=== PATIENT | male | born 1945 | race Caucasian/White ===

== ENCOUNTER → 2016-11-02 | Outpatient (CLI) | payer MEDICARE, BC ==
--- NOTE | 2016-11-02 12:54 | CR ---
EXAMINATION: Cervical spine HISTORY: Pain COMPARISON: None TECHNIQUE: AP and lateral views FINDINGS: The cervical spinal alignment is normal. The vertebral body heights and disc spaces appear well-maintained. There is no fracture or dislocation. No mineralization is normal. Prevertebral sof t tissues are within normal limits. IMPRESSION: Grossly unremarkable cervical spine.
== END | disposition home or self-care (01) ==
LOC: MW.CHFP 08:38
PROVIDERS: ATTEND Family Medicine
DX: M54.2 Cervicalgia (principal); R42 Dizziness and giddiness; F17.210 Nicotine dependence, cigarettes, uncomplicated
CPT/HCPCS: 72040; G0463

== ENCOUNTER 2017-04-07 10:47 | Emergency (ER) | payer MEDICARE, BC ==
--- NOTE | 2017-04-07 11:17 | EDM.PDOC ---
ED HPI GENERAL MEDICAL PROBLEM - General Chief Complaint: Flank Pain Stated Complaint: LEFT SIDE PAIN Time Seen by Provider: 04/07/17 10:59 Source of Information: Reports: Patient History Limitations: Reports: No Limitations - History of Present Illness INITIAL COMMENTS - FREE TEXT/NARRATIVE: HISTORY AND PHYSICAL: History of present illness: [71-year-old male with a history of coronary artery disease as well as atrial fibrillation on a elequis now presents to the emergency department waning of left flank pain. Patient has pain in his left mid back. The pain is worse with movement. He denies spinal pain. Reports normal bowel and bladder habits. No hematuria. He has no prior history of kidney stones. 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 This procedure also included removal of a rib in the distribution of his incision which is in the area of his left mid and anterior axillary line beneath the left axilla. Patient denies exertional symptoms. He has no chest pain or shortness of breath. No nausea vomiting diaphoresis no fevers chills sweats or shaking chills. Other than this pain reproducible with movement in his left mid back patient is asymptomatic Review of systems: As per history of present illness and below otherwise all systems reviewed and negative. Past medical history: As per history of present illness and as reviewed below otherwise noncontributory. Surgical history: As per history of present illness and as reviewed below otherwise noncontributory. Social history: No reported history of drug or alcohol abuse. Family history: As per history of present illness and as reviewed below otherwise noncontributory. Physical exam: HEENT: Atraumatic, normocephalic, pupils reactive, negative for conjunctival pallor or scleral icterus, mucous membranes moist, throat clear, neck supple, nontender, trachea midline. Lungs: Clear to auscultation, breath sounds equal bilaterally, chest nontender. Heart: S1S2, regular, negative for clicks, rubs, or JVD. Abdomen: Soft, nondistended, nontender. Negative for masses or hepatosplenomegaly. Negative for costovertebral tenderness. Pelvis: Stable nontender. Genitourinary: Deferred. Rectal: Deferred. Extremities: Atraumatic, negative for cords or calf pain. Neurovascular unremarkable. Neuro: Awake, alert, oriented. Cranial nerves II through XII unremarkable. Cerebellum unremarkable. Motor and sensory unremarkable throughout. Exam nonfocal. Diagnostics: [EKG with atrial fibrillation with ventricular rate at 75. Left anterior hemiblock. Left axis deviation. No STEMI] Therapeutics: [] Impression: [Left back pain Dorsal strain] Diverticulosis Adrenal masses Plan: [Signs and symptoms consistent with suspected musculoskeletal etiology for left mid back pain. Patient does have a complex history of coronary artery disease, atrial fibrillation with anticoagulation and prior lung surgery but no history of ureterolithiasis.] Full workup pending. Patient clinically stable Patient well-appearing on multiple reexamines with unremarkable vital signs. His laboratory workup is negative. X-ray of the chest with no acute disease. EKG benign and consistent with his history of atrial fibrillation. CT of the abdomen and pelvis reflect multiple chronic changes including adrenal masses suspected to be adenomas and diverticulosis with no evidence of diverticulitis. Full workup negative. The default diagnosis of suspected musculoskeletal back pain and dorsal strain appropriate. Results discussed with patient no further workup or treatment is indicated at this time he and his agree with outpatient follow-up and strict return precautions given Definitive disposition and diagnosis as appropriate pending reevaluation and review of above. left flank Pain Score (Numeric/FACES): 4 - Related Data Allergies Allergy/AdvReac Type Severity Reaction Status Date / Time atorvastatin calcium Allergy Muscle Verified 04/07/17 11:00 [From Lipitor] Aches cyclobenzaprine HCl Allergy Hallucinati Verified 04/07/17 11:00 [From Flexeril] ons Penicillins Allergy Itching Verified 04/07/17 11:00 Home Meds: Home Meds Apixaban [Eliquis] 2.5 mg PO BID 08/06/16 [History] Aspirin 81 mg PO DAILY 08/06/16 [History] Carvedilol [Coreg] 25 mg PO BID 08/06/16 [History] Doxazosin [Cardura] 4 mg PO BEDTIME 08/06/16 [History] atorvaSTATin [Lipitor] 10 mg PO DAILY 08/06/16 [History] Hydrocodone/Acetaminophen [[place] 5-325 Tablet] 1 each PO Q4H PRN #16 tablet [Rx] Past Medical History Other HEENT History: Tonsillectomy and Adenoidectomy as a child Cardiovascular History: Reports: High Cholesterol, Hypertension, Other (See Below) Other Cardiovascular History: Angioplasty 03/01/15 Emergency Transluminal Coronary Angioplasty, no stent placed Respiratory History: Reports: Asthma, COPD Other Respiratory History: Influenza A last september 2014 Genitourinary History: Other Genitourinary History: Prostate enlarement Musculoskeletal History: Other Musculoskeletal History: Lumbar post laminectomy syndrome Other Neuro History: Intervertebral disc disorder with myelopathy-lumbar region Endocrine/Metabolic History: Reports: Obesity/BMI 30+ Hematologic History: Reports: Anemia - Infectious Disease History Infectious Disease History: Reports: Measles, Mumps - Past Surgical History Cardiovascular Surgical History: Reports: Coronary Artery Stent Respiratory Surgical History: Reports: Other (See Below) Social & Family History - Family History Family Medical History: Noncontributory - Tobacco Use Smoking Status *Q: Current Every Day Smoker Years of Tobacco use: 50 Packs/Tins Daily: 0.5 Second Hand Smoke Exposure: No - Alcohol Use Days Per Week of Alcohol Use: 2 Number of Drinks Per Day: 2 Total Drinks Per Week: 4 - Recreational Drug Use Recreational Drug Use: No Drug Use in Last 12 Months: No ED ROS GENERAL - Review of Systems Review Of Systems: See Below (History of present illness) ED EXAM, GENERAL - Physical Exam Exam: See Below (History of present illness) Course - Vital Signs Last Recorded V/S: Last Vital Signs Temp 36.3 C 04/07/17 10:48 Pulse 68 04/07/17 12:51 Resp 18 04/07/17 12:51 BP 148/89 H 04/07/17 12:51 Pulse Ox 98 04/07/17 12:51 - Orders/Labs/Meds Orders: Active Orders 24 hr Category Date Time Status EKG Documentation Completion [RC] STAT Care 04/07/17 11:26 Active Abdomen Pelvis w Cont [CT] Stat Exams 04/07/17 11:20 Taken Chest 2V [CR] Stat Exams 04/07/17 11:24 Taken Peripheral IV Insertion Adult [OM.PC] Stat Oth 04/07/17 11:20 Ordered Labs: Laboratory Tests 04/07/17 04/07/17 04/07/17 Range/Units 11:30 11:35 11:35 WBC 9.00 (4.0-11.0) K/uL RBC 4.67 (4.50-5.90) M/uL Hgb 15.0 (13.0-17.0) g/dL Hct 45.3 (38.0-50.0) % MCV 97.0 (80.0-98.0) fL MCH 32.1 H (27.0-32.0) pg MCHC 33.1 (31.0-37.0) g/dL RDW Std Deviation 53.1 (28.0-62.0) fl RDW Coeff of [place] 15 (11.0-15.0) % Plt Count 219 (150-400) K/uL MPV 11.30 (7.40-12.00) fL Neut % (Auto) 64.0 (48.0-80.0) % Lymph % (Auto) 20.8 (16.0-40.0) % [place] % (Auto) 12.0 (0.0-15.0) % Eos % (Auto) 2.8 (0.0-7.0) % Baso % (Auto) 0.4 (0.0-1.5) % Neut # (Auto) 5.8 H (1.4-5.7) K/uL Lymph # (Auto) 1.9 (0.6-2.4) K/uL [place] # (Auto) 1.1 H (0.0-0.8) K/uL Eos # (Auto) 0.3 (0.0-0.7) K/uL Baso # (Auto) 0.0 (0.0-0.1) K/uL Nucleated RBC % 0.0 /100WBC Nucleated RBCs # 0 K/uL Sodium 140 (136-146) mmol/L Potassium 4.5 (3.5-5.1) mmol/L Chloride 107 (98-110) mmol/L Carbon Dioxide 25 (21-31) mmol/L BUN 16 (6.0-23.0) mg/dL Creatinine 1.1 (0.6-1.5) mg/dL Est Cr Clr Drug Dosing 67.61 mL/min Estimated GFR (MDRD) > 60.0 ml/min Glucose 112 H (60-110) mg/dL Calcium 8.9 (8.8-10.8) mg/dL Total Bilirubin 1.5 (0.1-1.5) mg/dL AST 20 (5-40) IU/L ALT 16 (8-54) IU/L Alkaline Phosphatase 79 (40-150) Troponin I (0.0-0.29) NG/ML Total Protein 7.3 (6.0-8.0) g/dL Albumin 4.2 (3.4-4.8) g/dL Globulin 3.1 (2.0-3.5) g/dL Albumin/Globulin Ratio 1.4 (1.3-2.8) Lipase 24 (7-80) U/L Urine Color YELLOW Urine Appearance CLEAR Urine pH 6.5 (5.0-8.0) Ur Specific Benedict 1.020 (1.001-1.035) Urine Protein 30 (NEGATIVE) mg/dL Urine Glucose (UA) NEGATIVE (NEGATIVE) mg/dL Urine Ketones NEGATIVE (NEGATIVE) mg/dL Urine Occult Blood TRACE-INTACT (NEGATIVE) Urine Nitrite NEGATIVE (NEGATIVE) Urine Bilirubin NEGATIVE (NEGATIVE) Urine Urobilinogen 1.0 (<2.0) EU/dL Ur Leukocyte Esterase NEGATIVE (NEGATIVE) Urine RBC 4-6 (0-2/HPF) Urine WBC 0-2 (0-5/HPF) Ur Epithelial Cells FEW (NONE-FEW) Urine Bacteria FEW (NEGATIVE) 04/07/17 Range/Units 11:35 WBC (4.0-11.0) K/uL RBC (4.50-5.90) M/uL Hgb (13.0-17.0) g/dL Hct (38.0-50.0) % MCV (80.0-98.0) fL MCH (27.0-32.0) pg MCHC (31.0-37.0) g/dL RDW Std Deviation (28.0-62.0) fl RDW Coeff of [place] (11.0-15.0) % Plt Count (150-400) K/uL MPV (7.40-12.00) fL Neut % (Auto) (48.0-80.0) % Lymph % (Auto) (16.0-40.0) % [place] % (Auto) (0.0-15.0) % Eos % (Auto) (0.0-7.0) % Baso % (Auto) (0.0-1.5) % Neut # (Auto) (1.4-5.7) K/uL Lymph # (Auto) (0.6-2.4) K/uL [place] # (Auto) (0.0-0.8) K/uL Eos # (Auto) (0.0-0.7) K/uL Baso # (Auto) (0.0-0.1) K/uL Nucleated RBC % /100WBC Nucleated RBCs # K/uL Sodium (136-146) mmol/L Potassium (3.5-5.1) mmol/L Chloride (98-110) mmol/L Carbon Dioxide (21-31) mmol/L BUN (6.0-23.0) mg/dL Creatinine (0.6-1.5) mg/dL Est Cr Clr Drug Dosing mL/min Estimated GFR (MDRD) ml/min Glucose (60-110) mg/dL Calcium (8.8-10.8) mg/dL Total Bilirubin (0.1-1.5) mg/dL AST (5-40) IU/L ALT (8-54) IU/L Alkaline Phosphatase (40-150) Troponin I < 0.10 (0.0-0.29) NG/ML Total Protein (6.0-8.0) g/dL Albumin (3.4-4.8) g/dL Globulin (2.0-3.5) g/dL Albumin/Globulin Ratio (1.3-2.8) Lipase (7-80) U/L Urine Color Urine Appearance Urine pH (5.0-8.0) Ur Specific [place] (1.001-1.035) Urine Protein (NEGATIVE) mg/dL Urine Glucose (UA) (NEGATIVE) mg/dL Urine Ketones (NEGATIVE) mg/dL Urine Occult Blood (NEGATIVE) Urine Nitrite (NEGATIVE) Urine Bilirubin (NEGATIVE) Urine Urobilinogen (<2.0) EU/dL Ur Leukocyte Esterase (NEGATIVE) Urine RBC (0-2/HPF) Urine WBC (0-5/HPF) Ur Epithelial Cells (NONE-FEW) Urine Bacteria (NEGATIVE) Meds: Medications Discontinued Medications Generic Name Dose Route Start Last Admin Trade Name Freq PRN Reason Stop Dose Admin Iopamidol 100 ml 04/07/17 12:41 04/07/17 12:42 Isovue Multipack-370 (76%) IVPUSH 04/07/17 12:42 100 ml ONETIME STA Administration Departure - Departure Time of Disposition: 13:56 Disposition: Home, Self-Care 01 Condition: Good Clinical Impression: Back pain, Strain, dorsal, Diverticulosis, Mass of both adrenal glands, Hypertension - Discharge Information Forms: ED Department Discharge Additional Instructions: Your findings are consistent with dorsal strain which means a strain of the back muscles which cause soreness with movement and touch. A very full workup was done in order to determine that there was nothing else contributing to your discomfort. Your CAT scan does show some chronic incidental findings including bilateral adrenal masses which are benign-appearing and are likely adrenal adenomas. It also shows diverticulosis but no evidence of diverticulitis. Her blood pressure was not well controlled during her visit today so follow-up with your DrBurt for reevaluation and further treatment as needed. Take [place] as prescribed as needed for pain and follow-up with your DrBurt tomorrow. Return immediately for new severe or worsening symptoms - My Orders Last 24 Hours: My Active Orders 04/07/17 11:20 Abdomen Pelvis w Cont [CT] Stat Peripheral IV Insertion Adult [OM.PC] Stat 04/07/17 11:24 Chest 2V [CR] Stat 04/07/17 11:26 EKG Documentation Completion [RC] STAT - Assessment/Plan Last 24 Hours: My Active Orders 04/07/17 11:20 Abdomen Pelvis w Cont [CT] Stat Peripheral IV Insertion Adult [OM.PC] Stat 04/07/17 11:24 Chest 2V [CR] Stat 04/07/17 11:26 EKG Documentation Completion [RC] STAT
[2017-04-07 12:04] LABS: CHLORIDE,CL 107 mmol/L (98-110); SODIUM,NA 140 mmol/L (136-146)
[2017-04-07] MEDS ORDERED: Iopamidol 755 MG/ML 500 ML Multipack Bottle IVPUSH STA (12:41)
[2017-04-07 14:50] VITALS: BP 141/92
--- NOTE | 2017-04-09 11:26 | CT ---
EXAM DATE: 04/07/17 PATIENT'S AGE: 71 Patient: NAUN HAQUE Facility: [place], [place] Site . Site : 1945 Study: CT Abdomen/Pelvis [id number]/29/2017 12:50:16 PM Ordering Physician: New Miller Final Report: INDICATION: Left Flank Pain for 5 Days TECHNIQUE: Helical scans obtained through the abdomen and pelvis after administration of 100 cc of Isovue-370 intravenously. COMPARISON: CT scan of the abdomen and pelvis dated 08/17/2016. FINDINGS: 1. Chronic scarring at the left lung base. 2. Stable calcified lesion at the left hepatic dome, segment 2. This may be related to old granulomatous infection. 3. Spleen, pancreas and gallbladder appear normal. 4. There are small bilateral adrenal nodules which are stable and most likely represent small adenomas. 5. 3 mm nonobstructing calculus in the mid left kidney. This is unchanged. No hydronephrosis or ureteral stones. 6. Diverticulosis in the sigmoid colon without diverticulitis. Normal appendix. Small bowel loops are normal caliber. 7. Moderate aortoiliac artery calcification. No aneurysm. 8. Degenerative disc disease at L3-4. Laminectomies at L3 through L5. Lumbar curvature with convexity to the left. 9. No free fluid or free air in the peritoneal cavity. 10. Bladder and prostate are within normal limits. IMPRESSION: No acute intra-abdominal abnormalities are identified. The appearance of the abdomen and pelvis are unchanged since 08/17/2016. Dictated by Maverick Cuba MD @ 04/07/2017 1:33:53 PM Dictated by: Maverick Cuba MD @ 04/07/2017 13:34:00 (Electronic Signature) Report Signed by Proxy. [facility] ROCHELLE HOSPITALDee Dee
--- NOTE | 2017-04-09 11:27 | CR ---
EXAM DATE: 04/07/17 PATIENT'S AGE: 71 Patient: NAUN HAQUE Facility: [place], [place] Site . Site : 1945 Study: XRay Chest [id number]/29/2017 12:56:32 PM Ordering Physician: New Miller Final Report: HISTORY: Left flank pain technique chest x-ray. Comparison: Chest x-ray 05/18/2015. Findings: Stable mild enlargement of the cardiac silhouette. Left basilar patchy opacities probably represent fibrotic given the stability. No acute airspace or interstitial process. Right lung is clear. Degenerative changes of the spine. Probable eventration the posterior hemidiaphragm. Impression: 1. No acute pulmonary findings. Dictated by Anali Garcia MD @ Apr 07 2017 1:27PM (Electronic Signature) Report Signed by Proxy. MTDDee Dee
== END 2017-04-07 14:40 | disposition home or self-care (01) ==
LOC: MW.ED 10:47
DX: S29.012A Strain of muscle and tendon of back wall of thorax, initial encounter (principal); K57.90 Diverticulosis of intestine, part unspecified, without perforation or abscess without bleeding; E27.9 Disorder of adrenal gland, unspecified; E78.00 Pure hypercholesterolemia, unspecified; I10 Essential (primary) hypertension; J45.909 Unspecified asthma, uncomplicated; J44.9 Chronic obstructive pulmonary disease, unspecified; E66.9 Obesity, unspecified; F17.210 Nicotine dependence, cigarettes, uncomplicated; Z88.0 Allergy status to penicillin; Z88.8 Allergy status to other drugs, medicaments and biological substances; Z86.2 Personal history of diseases of the blood and blood-forming organs and certain disorders involving the immune mechanism; Z79.82 Long term (current) use of aspirin; Z79.899 Other long term (current) drug therapy; Z68.34 Body mass index [BMI] 34.0-34.9, adult; I25.10 Atherosclerotic heart disease of native coronary artery without angina pectoris; I48.91 Unspecified atrial fibrillation; X58.XXXA Exposure to other specified factors, initial encounter
CPT/HCPCS: 71020; 74177; 80053; 81001; 83690; 84484; 85025; 99285; Q9967; 93005; 99283

== ENCOUNTER 2017-10-03 10:17 | Day surgery (SDC) | payer MEDICARE, BC ==
[~2017-10-03 10:17] MED LIST: Bupivacaine 0.25%/EPINEPHrine 1:200,000 10 ML SDV INJECT ONE; Bupivacaine 25%/EPINEPHrine/PF 30 ML ONE; Clindamycin Phosphate in D5W 600 MG in Premix Bag 1 BAG IV ONE; Dexamethasone 4 MG/ML 5 ML MDV ONE; Dexamethasone/Tobramycin 0.1-0.3% Ophth Oint 3.5 GM Tube ONE; Dexamethasone/Tobramycin 0.1-0.3% Ophth Susp 2.5 ML Bottle EYEBOTH ONE; Lactated Ringers 1,000 ML IV SCH; Midazolam 1 MG/ML 2 ML SDV ONE; Octyl 2-Cyanoacrylate 1 Tube ONE; Ondansetron 4 MG/2 ML SDV ONE; Propofol 200 MG/20 ML SDV ONE; fentaNYL 100 MCG/2 ML SDV ONE; traMADol 50 MG Tab PO PRN
--- NOTE | 2017-10-03 11:38 | PCM.PREANE ---
Preanesthetic Assessment - Anesthesia/Transfusion/Family Hx Anesthesia History: Prior Anesthesia Without Reaction Other Type of Anesthesia Reaction Comment: denies any known problem in past Family History of Anesthesia Reaction: No Transfusion History: No Prior Transfusion(s) - Review of Systems General: No Symptoms Pulmonary: No Symptoms Cardiovascular: No Symptoms Gastrointestinal: No Symptoms Neurological: No Symptoms Other: Reports: None - Physical Assessment NPO Status Date: 10/02/17 Height: 1.83 m Weight: 113.398 kg ASA Class: 2 Mental Status: Alert & Oriented x3 Airway Class: Mallampati = 2 Dentition: Reports: Normal Dentition ROM/Head Extension: Full Lungs: Clear to Auscultation, Normal Respiratory Effort Cardiovascular: Regular Rate, Regular Rhythm - Allergies Allergies/Adverse Reactions: Allergies Allergy/AdvReac Type Severity Reaction Status Date / Time atorvastatin calcium Allergy Muscle Verified 10/01/17 08:56 [From Lipitor] Aches cyclobenzaprine HCl Allergy Hallucinati Verified 10/01/17 08:56 [From Flexeril] ons Penicillins Allergy Itching Verified 10/01/17 08:56 - Acknowledgements Anesthesia Type Planned: General Anesthesia Pt an Appropriate Candidate for the Planned Anesthesia: Yes Alternatives and Risks of Anesthesia Discussed w Pt/Guardian: Yes Pt/Guardian Understands and Agrees with Anesthesia Plan: Yes Additional Comments: PMH: asthma, sylvia, cad with angioplasty but no stent, htn, hld, gerd, smoker, mild MR and mild AI, mod pulm htn PreAnesthesia Questionnaire Other HEENT History: Tonsillectomy and Adenoidectomy as a child, reading glasses Cardiovascular History: Reports: CAD, High Cholesterol, Hypertension, Other ( See Below) Other Cardiovascular History: Angioplasty 03/01/15 Emergency Transluminal Coronary Angioplasty, no stent placed Respiratory History: Reports: Asthma, COPD Other Respiratory History: Influenza A september 2014, hx pleural effusion, chest tube placement and rib resection, open flap drainage and closure of open flap drain Gastrointestinal History: Reports: GERD Genitourinary History: Reports: BPH Musculoskeletal History: Reports: Arthritis, Back Pain, Chronic, Fracture, Neck Pain, Chronic Other Musculoskeletal History: Lumbar post laminectomy syndrome, hx fx leg Other Neuro History: Intervertebral disc disorder with myelopathy-lumbar region Endocrine/Metabolic History: Reports: Obesity/BMI 30+ Hematologic History: Reports: Iron Deficiency - Infectious Disease History Infectious Disease History: Reports: Measles, Mumps - Past Surgical History Head Surgeries/Procedures: Reports: None HEENT Surgical History: Reports: Adenoidectomy, Tonsillectomy Cardiovascular Surgical History: Respiratory Surgical History: GI Surgical History: Reports: Colonoscopy Neurological Surgical History: Reports: Laminectomy Other Musculoskeletal Surgeries/Procedures:: L3-5 Laminectomy 02/26/15 - SUBSTANCE USE Smoking Status *Q: Current Every Day Smoker Tobacco Use Within Last Twelve Months: Cigarettes Second Hand Smoke Exposure: No Days Per Week of Alcohol Use: 2 Number of Drinks Per Day: 2 Total Drinks Per Week: 4 Recreational Drug Use History: No - HOME MEDS Home Medications: Home Meds Apixaban [Eliquis] 2.5 mg PO BID 08/06/16 [History] Aspirin 81 mg PO DAILY 08/06/16 [History] Carvedilol [Coreg] 25 mg PO BID 08/06/16 [History] Doxazosin [Cardura] 4 mg PO BID 08/06/16 [History] atorvaSTATin [Lipitor] 10 mg PO DAILY 08/06/16 [History] Albuterol [Ventolin HFA] 2 puff INH Q4H PRN 10/01/17 [History] Hydrochlorothiazide 12.5 mg PO DAILY 10/01/17 [History] Lidocaine 4% [LMX 4] 1 applic TOP ASDIRECTED PRN 10/01/17 [History] Lisinopril 20 mg PO BID 10/01/17 [History] Nitroglycerin [Nitrostat] 1 tab SL ASDIRECTED PRN 10/01/17 [History] Ranitidine HCl [Zantac] 1 tab PO ASDIRECTED PRN 10/01/17 [History] - CURRENT (IN HOUSE) MEDS Current Meds: Current Medications Lactated Ringer's (Ringers, Lactated) 1,000 mls @ 500 mls/hr IV .BOLUS BLAIR Last Admin: 10/03/17 10:53 Dose: 500 mls/hr Tramadol HCl (Ultram) 50 mg PO Q4H PRN PRN Reason: Pain Discontinued Medications Bupivacaine HCl/Epinephrine Bitart (Marcaine 0.25%/Epinephrine 1:200,000) 10 ml INJECT ONETIME ONE Stop: 10/03/17 08:01 Dexamethasone (Dexamethasone) Confirm Administered Dose 20 mg .ROUTE .STK-MED ONE Stop: 10/03/17 07:18 Fentanyl (Sublimaze) Confirm Administered Dose 100 mcg .ROUTE .STK-MED ONE Stop: 10/03/17 07:17 Clindamycin Phosphate 600 mg/ (Premix) 50 mls @ 150 mls/hr IV ONETIME ONE Stop: 10/03/17 08:19 Bupivacaine HCl/Epinephrine Bitart (Sensorc Mpf 0.25%-Epi [id number]) Confirm Administered Dose 30 mls @ as directed .ROUTE .STK-MED ONE Stop: 10/03/17 07:23 Lidocaine HCl (Xylocaine-Mpf 1%) Confirm Administered Dose 5 ml .ROUTE .STK-MED ONE Stop: 10/03/17 07:18 Midazolam HCl (Versed 1 Mg/Ml) Confirm Administered Dose 2 mg .ROUTE .STK-MED ONE Stop: 10/03/17 07:17 Octyl Cyanoacrylate (Dermabond Advance) Confirm Administered Dose 1 applic .ROUTE .STK-MED ONE Stop: 10/03/17 07:24 Ondansetron HCl (Zofran) Confirm Administered Dose 4 mg .ROUTE .STK-MED ONE Stop: 10/03/17 07:18 Propofol (Diprivan 20 Ml) Confirm Administered Dose 200 mg .ROUTE .STK-MED ONE Stop: 10/03/17 07:17 Tobramycin/Dexamethasone (Tobradex Ophth Susp) 1 ml EYEBOTH ONETIME ONE Stop: 10/03/17 08:01 Tobramycin/Dexamethasone (Tobradex Ophth Oint) Confirm Administered Dose 3.5 gm .ROUTE .STK-MED ONE Stop: 10/03/17 07:24
[2017-10-03] MEDS ORDERED: Phenylephrine/Normal Saline 100 MCG/ML 10 ML Syringe ONE (11:50)
[2017-10-03] MEDS ORDERED: Mineral Oil/Petrolatum Ophth Oint 3.5 GM Tube ONE (11:52)
[2017-10-03] MEDS ORDERED: Phenylephrine 1% 10 MG/ML SDV ONE (12:01)
[2017-10-03] MEDS ORDERED: Glycopyrrolate 0.2 MG/ML SDV ONE (12:09)
[2017-10-03] MEDS ORDERED: fentaNYL 100 MCG/2 ML SDV IVPUSH PRN (12:16)
--- NOTE | 2017-10-03 13:44 | PCM48HPAN ---
Post Anesthesia Note - EVALUATION WITHIN 48HRS OF ANESTHETIC Vital Signs in Normal Range: Yes Patient Participated in Evaluation: Yes Respiratory Function Stable: Yes Airway Patent: Yes Cardiovascular Function Stable: Yes Hydration Status Stable: Yes Pain Control Satisfactory: Yes Nausea and Vomiting Control Satisfactory: Yes Mental Status Recovered: Yes
--- NOTE | 2017-10-03 13:44 | PCM.POSTAN ---
POST ANESTHESIA ASSESSMENT - MENTAL STATUS Mental Status: Alert, Oriented - RESPIRATORY Respiratory Status: Respiratory Rate WNL, Airway Patent, O2 Saturation Stable - CARDIOVASCULAR CV Status: Pulse Rate WNL, Blood Pressure Stable - GASTROINTESTINAL GI Status: No Symptoms - POST OP HYDRATION Hydration Status: Adequate & Stable
[2017-10-03 14:12] VITALS: BP 115/68
--- NOTE | 2017-10-05 08:00 | PCM.OPNOTE ---
- General Post-Op/Procedure Note Date of Surgery/Procedure: 10/03/17 Operative Procedure(s): bilateral upper lid blepharoplasties for excess skin Pre Op Diagnosis: bilateral dermatochalasis Post-Op Diagnosis: Same Anesthesia Technique: Local, MAC Primary Surgeon: Aura Guevara Gas Appliance Repairer: Janey Servin Complications: None Condition: Good
--- NOTE | 2017-10-05 20:34 | OR ---
SURGEON: DONN LEE MD DATE OF PROCEDURE: 10/03/2017 PREOPERATIVE DIAGNOSIS: Bilateral dermatochalasis, upper lid. POSTOPERATIVE DIAGNOSIS: Bilateral dermatochalasis, upper lid. PROCEDURE: Bilateral upper lid blepharoplasty for excess skin. LANDSCAPE LABORER: JAREK Cowan. ANESTHESIA: Local MAC. Reason for assistant attorney general is retraction, prepping, draping, and closure assistance. INDICATIONS: Mr. Venegas is a 71-year-old gentleman seen today in evaluation for bilateral upper eyelid excess skin. Risks and benefits were discussed with him of excision and he was in agreement to proceed. Risks were including, but not limited to, bleeding, infection, damage to underlying or overlying structures, possible need for future interventions, possible scarring. DESCRIPTION OF PROCEDURE: After informed consent was obtained and placed on the chart, the patient was brought to the operating theater and laid in supine position. After adequate general anesthetic was obtained, the area was prepped and draped and a time-out was completed to confirm side and site. Attention was then paid to marking of the upper eyelid incisions. Once adequate excess skin had been marked and pinch tests were completed to ensure appropriate release, taking slightly more on the right side than on the left, attention was then paid to infiltration of local anesthesia in the area. Once adequately infiltrated, the excess skin was incised using a 15 blade and Bovie electrocautery for hemostasis. Once adequately excised, the muscle was cauterized to prevent additional bleeding and allow additional retraction and then the skin was closed with a single deep 5-0 Monocryl stitch and a running 6- 0 Prolene for the skin. These were tacked in place using Steri-Strips. The patient tolerated the procedure well with symmetry of procedure completed on each side. Once adequately completed, the patient was awakened, taken to PACU in stable condition. He will call with any questions or concerns and was given a prescription for pain control. HEGGTHE / MODL /[id number]
== END 2017-10-03 13:45 | disposition home or self-care (01) ==
LOC: MW.SDS 10:17
PROVIDERS: ATTEND Plastic Surgery
DX: H02.834 Dermatochalasis of left upper eyelid (principal); H02.831 Dermatochalasis of right upper eyelid; D50.9 Iron deficiency anemia, unspecified; I48.91 Unspecified atrial fibrillation; I25.10 Atherosclerotic heart disease of native coronary artery without angina pectoris; I10 Essential (primary) hypertension; E78.00 Pure hypercholesterolemia, unspecified; R31.1 Benign essential microscopic hematuria; N40.0 Benign prostatic hyperplasia without lower urinary tract symptoms; K21.9 Gastro-esophageal reflux disease without esophagitis; M96.1 Postlaminectomy syndrome, not elsewhere classified; F17.210 Nicotine dependence, cigarettes, uncomplicated; I25.2 Old myocardial infarction; J44.9 Chronic obstructive pulmonary disease, unspecified; E66.9 Obesity, unspecified; M19.90 Unspecified osteoarthritis, unspecified site; Z79.01 Long term (current) use of anticoagulants; Z79.899 Other long term (current) drug therapy; Z88.8 Allergy status to other drugs, medicaments and biological substances; Z88.1 Allergy status to other antibiotic agents; Z88.0 Allergy status to penicillin; Z79.82 Long term (current) use of aspirin; Z90.89 Acquired absence of other organs; Z68.33 Body mass index [BMI] 33.0-33.9, adult; Z98.61 Coronary angioplasty status
CPT/HCPCS: 15822; J1100; J2250; J2370; J2405; J3010; J7120; 00103; A9270-GY; J2704

== ENCOUNTER 2020-09-27 14:39 | Emergency (ER) | payer MEDICARE, BC ==
[2020-09-27] MEDS ORDERED: Sodium Chloride 0.9% 10 ML Syringe FLUSH PRN (14:41)
[2020-09-27] MEDS ORDERED: Sodium Chloride 0.9% 2.5 ML Syringe FLUSH PRN (14:41)
--- NOTE | 2020-09-27 14:43 | EDM.PDOC ---
ED HPI GENERAL MEDICAL PROBLEM - General Stated Complaint: STOMACH PAIN Time Seen by Provider: 09/27/20 14:40 Source of Information: Reports: Patient History Limitations: Reports: No Limitations - History of Present Illness INITIAL COMMENTS - FREE TEXT/NARRATIVE: 74-year-old male with history of A. fib, COPD, CAD, diverticulosis presents with lower abdominal pain over the past 2 weeks. Pain has been waxing and waning but increasing in intensity today. Described as cramping sensation, nonradiating, moderate, no alleviating or exacerbating factors. He denies fever, chills, nausea, vomiting, palpitations, dysuria. He admits to nonbloody diarrhea. He is on eliquis. ROS: A 10-point review of systems, other than pertinent positives and negatives as stated per HPI, is otherwise negative Past medical history: No additional pertinent history Past Surgical history: No additional pertinent history Social history: No additional pertinent history Family history: No additional pertinent history PHYSICAL EXAM General: AOx4, GCS = 15, No distress HEENT: dry mucous membrane Neck: supple, no meningismus, no Kernig or Brudzinski Cardiac: S1S2 RRR Respiratory: CTAB, no crackles or rales, no wheezing Abdomen: Soft, nontender, no rebound or guarding, nondistended, no pulsatile mass. Back: nontender Musculoskeletal: NVI distally, no deformity Neuro: No focal deficits, CN 2 - 12 WNL. right lower quadrant Pain Score (Numeric/FACES): 5 - Related Data Allergies Allergy/AdvReac Type Severity Reaction Status Date / Time cyclobenzaprine HCl Allergy Hallucinati Verified 09/27/20 15:02 [From Flexeril] ons Home Meds: Home Meds Apixaban [Eliquis] 2.5 mg PO BID 08/06/16 [History] Aspirin 81 mg PO DAILY 08/06/16 [History] Doxazosin [Cardura] 4 mg PO BID 08/06/16 [History] atorvaSTATin [Lipitor] 10 mg PO DAILY 08/06/16 [History] carvediloL [Coreg] 25 mg PO BID 08/06/16 [History] Albuterol [Ventolin HFA] 2 puff INH Q4H PRN 10/01/17 [History] Lisinopril 20 mg PO BID 10/01/17 [History] Nitroglycerin [Nitrostat] 1 tab SL ASDIRECTED PRN 10/01/17 [History] hydroCHLOROthiazide [Hydrochlorothiazide] 12.5 mg PO DAILY 10/01/17 [History] Dicyclomine [Bentyl] 10 mg PO QIDACANDBED #12 cap 09/27/20 [Rx] Past Medical History Other HEENT History: Tonsillectomy and Adenoidectomy as a child, reading glasses Cardiovascular History: Reports: CAD, High Cholesterol, Hypertension, Other (See Below) Other Cardiovascular History: Angioplasty 03/01/15 Emergency Transluminal Coronary Angioplasty, no stent placed Respiratory History: Reports: Asthma, COPD Other Respiratory History: Influenza A september 2014, hx pleural effusion, chest tube placement and rib resection, open flap drainage and closure of open flap drain Gastrointestinal History: Reports: GERD Genitourinary History: Reports: BPH Musculoskeletal History: Reports: Arthritis, Back Pain, Chronic, Fracture, Neck Pain, Chronic Other Musculoskeletal History: Lumbar post laminectomy syndrome, hx fx leg Other Neuro History: Intervertebral disc disorder with myelopathy-lumbar region Endocrine/Metabolic History: Reports: Obesity/BMI 30+ Hematologic History: Reports: Iron Deficiency - Infectious Disease History Infectious Disease History: Reports: Measles, Mumps Other Infectious Disease History: unsure - Past Surgical History Head Surgeries/Procedures: Reports: None HEENT Surgical History: Reports: Adenoidectomy, Tonsillectomy GI Surgical History: Reports: Colonoscopy Neurological Surgical History: Reports: Laminectomy Other Musculoskeletal Surgeries/Procedures:: L3-5 Laminectomy 02/26/15 Social & Family History - Family History Family Medical History: No Pertinent Family History ED ROS GENERAL - Review of Systems Review Of Systems: See Below (see dictation) ED EXAM, GI/ABD - Physical Exam Exam: See Below (see dictation) #1 Interpretation EKG Interpretation Comments: 79 bpm, afib, normal QRS interval, no STEMI. EKG and rhythm strip interpreted by me at 1456 Course - Vital Signs Last Recorded V/S: Last Vital Signs Temp 98.1 F 09/27/20 14:55 Pulse 73 09/27/20 14:55 Resp 18 09/27/20 14:55 BP 152/89 H 09/27/20 14:55 Pulse Ox 97 09/27/20 14:55 - Orders/Labs/Meds Orders: Active Orders 24 hr Category Date Time Status Cardiac Monitoring [RC] . DIRECTED Care 09/27/20 14:41 Active EKG Documentation Completion [RC] STAT Care 09/27/20 14:42 Active Pulse Oximetry [RC] ASDIRECTED Care 09/27/20 14:41 Active Sodium Chloride 0.9% [Saline Flush] Med 09/27/20 14:41 Active 10 ml FLUSH ASDIRECTED PRN Sodium Chloride 0.9% [Saline Flush] Med 09/27/20 14:41 Active 2.5 ml FLUSH ASDIRECTED PRN Saline Lock Insert [OM.PC] Stat Oth 09/27/20 14:41 Ordered Medication Orders Sodium Chloride (Saline Flush) 10 ml FLUSH ASDIRECTED PRN PRN Reason: Keep Vein Open Last Admin: 09/27/20 15:17 Dose: 10 ml Documented by: TRUDY Sodium Chloride (Saline Flush) 2.5 ml FLUSH ASDIRECTED PRN PRN Reason: Keep Vein Open Last Admin: 09/27/20 15:17 Dose: 2.5 ml Documented by: TRUDY Labs: Laboratory Tests 09/27/20 09/27/20 09/27/20 Range/Units 14:50 14:57 14:57 WBC 9.57 (4.0-11.0) K/uL RBC 4.56 (4.50-5.90) M/uL Hgb 15.0 (13.0-17.0) g/dL Hct 45.3 (38.0-50.0) % MCV 99.3 H (80.0-98.0) fL MCH 32.9 H (27.0-32.0) pg MCHC 33.1 (31.0-37.0) g/dL RDW Std Deviation 47.4 (28.0-62.0) fl RDW Coeff of [place] 13 (11.0-15.0) % Plt Count 217 (150-400) K/uL MPV 11.70 (7.40-12.00) fL Neut % (Auto) 55.9 (48.0-80.0) % Lymph % (Auto) 30.4 (16.0-40.0) % [place] % (Auto) 10.6 (0.0-15.0) % Eos % (Auto) 2.5 (0.0-7.0) % Baso % (Auto) 0.6 (0.0-1.5) % Neut # (Auto) 5.4 (1.4-5.7) K/uL Lymph # (Auto) 2.9 H (0.6-2.4) K/uL [place] # (Auto) 1.0 H (0.0-0.8) K/uL Eos # (Auto) 0.2 (0.0-0.7) K/uL Baso # (Auto) 0.1 (0.0-0.1) K/uL Nucleated RBC % 0.0 /100WBC Nucleated RBCs # 0 K/uL INR 1.06 Lactate (0.20-2.00) mmol/L Sodium (136-148) mmol/L Potassium (3.5-5.1) mmol/L Chloride (98-107) mmol/L Carbon Dioxide (21.0-32.0) mmol/L BUN (7.0-18.0) mg/dL Creatinine (0.8-1.3) mg/dL Est Cr Clr Drug Dosing mL/min Estimated GFR (MDRD) ml/min Glucose (74-106) mg/dL Calcium (8.5-10.1) mg/dL Magnesium (1.8-2.4) mg/dL Total Bilirubin (0.2-1.0) mg/dL AST (15-37) IU/L ALT (14-63) IU/L Alkaline Phosphatase (46-116) U/L Troponin I (0.000-0.056) ng/mL Total Protein (6.4-8.2) g/dL Albumin (3.4-5.0) g/dL Globulin (2.6-4.0) g/dL Albumin/Globulin Ratio (0.9-1.6) Lipase (73-393) U/L Urine Color YELLOW Urine Appearance CLEAR Urine pH 6.0 (5.0-8.0) Ur Specific [place] 1.025 (1.001-1.035) Urine Protein NEGATIVE (NEGATIVE) mg/dL Urine Glucose (UA) NEGATIVE (NEGATIVE) mg/dL Urine Ketones NEGATIVE (NEGATIVE) mg/dL Urine Occult Blood MODERATE H (NEGATIVE) Urine Nitrite NEGATIVE (NEGATIVE) Urine Bilirubin NEGATIVE (NEGATIVE) Urine Urobilinogen 1.0 (<2.0) EU/dL Ur Leukocyte Esterase NEGATIVE (NEGATIVE) Urine RBC 1-3 (0-2/HPF) Urine WBC 0-2 (0-5/HPF) Ur Epithelial Cells RARE (NONE-FEW) Urine Bacteria RARE (NEGATIVE) Urine Mucus LIGHT (NONE-MOD) 09/27/20 09/27/20 Range/Units 14:57 14:57 WBC (4.0-11.0) K/uL RBC (4.50-5.90) M/uL Hgb (13.0-17.0) g/dL Hct (38.0-50.0) % MCV (80.0-98.0) fL MCH (27.0-32.0) pg MCHC (31.0-37.0) g/dL RDW Std Deviation (28.0-62.0) fl RDW Coeff of K[place] (11.0-15.0) % Plt Count (150-400) K/uL MPV (7.40-12.00) fL Neut % (Auto) (48.0-80.0) % Lymph % (Auto) (16.0-40.0) % [place] % (Auto) (0.0-15.0) % Eos % (Auto) (0.0-7.0) % Baso % (Auto) (0.0-1.5) % Neut # (Auto) (1.4-5.7) K/uL Lymph # (Auto) (0.6-2.4) K/uL [place] # (Auto) (0.0-0.8) K/uL Eos # (Auto) (0.0-0.7) K/uL Baso # (Auto) (0.0-0.1) K/uL Nucleated RBC % /100WBC Nucleated RBCs # K/uL INR Lactate 1.1 (0.20-2.00) mmol/L Sodium 141 (136-148) mmol/L Potassium 4.0 (3.5-5.1) mmol/L Chloride 106 (98-107) mmol/L Carbon Dioxide 25.4 (21.0-32.0) mmol/L BUN 14 (7.0-18.0) mg/dL Creatinine 1.0 (0.8-1.3) mg/dL Est Cr Clr Drug Dosing 71.13 mL/min Estimated GFR (MDRD) > 60.0 ml/min Glucose 110 H (74-106) mg/dL Calcium 8.9 (8.5-10.1) mg/dL Magnesium 1.9 (1.8-2.4) mg/dL Total Bilirubin 0.5 (0.2-1.0) mg/dL AST 18 (15-37) IU/L ALT 28 (14-63) IU/L Alkaline Phosphatase 60 (46-116) U/L Troponin I < 0.050 (0.000-0.056) ng/mL Total Protein 7.1 (6.4-8.2) g/dL Albumin 3.7 (3.4-5.0) g/dL Globulin 3.4 (2.6-4.0) g/dL Albumin/Globulin Ratio 1.1 (0.9-1.6) Lipase 139 (73-393) U/L Urine Color Urine Appearance Urine pH (5.0-8.0) Ur Specific [place] (1.001-1.035) Urine Protein (NEGATIVE) mg/dL Urine Glucose (UA) (NEGATIVE) mg/dL Urine Ketones (NEGATIVE) mg/dL Urine Occult Blood (NEGATIVE) Urine Nitrite (NEGATIVE) Urine Bilirubin (NEGATIVE) Urine Urobilinogen (<2.0) EU/dL Ur Leukocyte Esterase (NEGATIVE) Urine RBC (0-2/HPF) Urine WBC (0-5/HPF) Ur Epithelial Cells (NONE-FEW) Urine Bacteria (NEGATIVE) Urine Mucus (NONE-MOD) Meds: Medications Generic Name Dose Route Start Last Admin Trade Name Freq PRN Reason Stop Dose Admin Sodium Chloride 10 ml 09/27/20 14:41 09/27/20 15:17 Saline Flush FLUSH 10 ml ASDIRECTED PRN Administration Keep Vein Open Sodium Chloride 2.5 ml 09/27/20 14:41 09/27/20 15:17 Saline Flush FLUSH 2.5 ml ASDIRECTED PRN Administration Keep Vein Open Discontinued Medications Generic Name Dose Route Start Last Admin Trade Name Cemq PRN Reason Stop Dose Admin Dicyclomine HCl 20 mg 09/27/20 15:48 09/27/20 16:05 Bentyl PO 09/27/20 15:49 20 mg ONETIME ONE Administration Iopamidol 100 ml 09/27/20 16:07 09/27/20 16:10 Isovue Multipack-370 (76%) IVPUSH 09/27/20 16:08 100 ml ONETIME STA Administration - Re-Assessments/Exams Free Text/Narrative Re-Assessment/Exam: 09/27/20 16:43 After medications in the ER, the patient improved and is currently stable for discharge. I performed a repeat exam and did not appreciate new abnormal findings. Patient exhibits normal vital signs and has a normal gait on road test. I advised the patient to return to the ER for reevaluation if symptoms worsened, including fever, worsening pain, or any other worrisome symptoms. I instructed the patient to follow up with their PCP within 2-3 days. MEDICAL DECISION MAKING: I reviewed the patients past medical records, lab and radiographic findings. I discussed the case with the patient. My differential diagnosis included: Diverticulitis, diverticulosis, cystitis. CT demonstrated diverticulosis with no signs of infection, urine negative for UTI. EKG unremarkable for A. fib with RVR, I do not suspect mesenteric ischemia. He has no leukocytosis or lactic acidosis. Departure - Departure Time of Disposition: 16:43 Disposition: Home, Self-Care 01 Condition: Good Clinical Impression: Diverticulosis - Discharge Information *PRESCRIPTION DRUG MONITORING PROGRAM REVIEWED*: Not Applicable *COPY OF PRESCRIPTION DRUG MONITORING REPORT IN PATIENT LACHO: Not Applicable Prescriptions: Dicyclomine [Bentyl] 10 mg PO QIDACANDBED #12 cap Instructions: Diverticulosis Referrals: Magdalena Hays MD [Primary Care Provider] - 3 Days Additional Instructions: The need for follow-up, as well as the timing and circumstances, are variable depending upon the specifics of your emergency department visit. If you don't have a primary care physician on staff, we will provide you with a referral. We always advise you to contact your personal physician following an emergency department visit to inform them of the circumstance of the visit and for follow-up with them and/or the need for any referrals to a consulting specialist. The emergency department will also refer you to a specialist when appropriate. This referral assures that you have the opportunity for follow-up care with a specialist. All of these measure are taken in an effort to provide you with optimal care, which includes your follow-up. Under all circumstances we always encourage you to contact your private physician who remains a resource for coordinating your care. When calling for follow-up care, please make the office aware that this follow-up is from your recent emergency room visit. If for any reason you are refused follow-up, please contact the [facility] Emergency Department at and asked to speak to the emergency department charge nurse. If you do not have a primary care doctor, please follow up with the clinics below within 3-5 days. [facility] - Primary Care [address] [place] [address] [address] Sepsis Event Note (ED) - Focused Exam Vital Signs: Vital Signs Temp Pulse Resp BP Pulse Ox 09/27/20 14:55 98.1 F 73 18 152/89 H 97 - My Orders Last 24 Hours: My Active Orders 09/27/20 14:41 Cardiac Monitoring [RC] . DIRECTED Pulse Oximetry [RC] ASDIRECTED Sodium Chloride 0.9% [Saline Flush] 10 ml FLUSH ASDIRECTED PRN Sodium Chloride 0.9% [Saline Flush] 2.5 ml FLUSH ASDIRECTED PRN Saline Lock Insert [OM.PC] Stat 09/27/20 14:42 EKG Documentation Completion [RC] STAT - Assessment/Plan Last 24 Hours: My Active Orders 09/27/20 14:41 Cardiac Monitoring [RC] . DIRECTED Pulse Oximetry [RC] ASDIRECTED Sodium Chloride 0.9% [Saline Flush] 10 ml FLUSH ASDIRECTED PRN Sodium Chloride 0.9% [Saline Flush] 2.5 ml FLUSH ASDIRECTED PRN Saline Lock Insert [OM.PC] Stat 09/27/20 14:42 EKG Documentation Completion [RC] STAT
[2020-09-27 15:42] LABS: BLOOD UREA NITROGEN,BUN 14 mg/dL (7.0-18.0); CARBON DIOXIDE,CO2 25.4 mmol/L (21.0-32.0); CHLORIDE,CL 106 mmol/L (98-107); GLUCOSE RANDOM 110 mg/dL (74-106); LIPASE 139 U/L (73-393); SODIUM,NA 141 mmol/L (136-148)
[2020-09-27] MEDS ORDERED: Dicyclomine 10 MG Cap PO ONE (15:48)
[2020-09-27] MEDS ORDERED: Iopamidol 755 MG/ML 500 ML Multipack Bottle IVPUSH STA (16:07)
--- NOTE | 2020-09-27 16:35 | CT ---
INDICATION: Lower abdominal pain TECHNIQUE: CT abdomen and pelvis acquired with 100 cc Isovue 370 IV contrast. COMPARISON: September 26, 2018 FINDINGS: Lower chest: Linear atelectasis or scarring at the left lung base. Liver: Dystrophic calcifications in the left hepatic lobe, unchanged. Hepatic steatosis. Spleen: Unremarkable. Pancreas: Unremarkable. Gallbladder and bile ducts: Unremarkable. Adrenal glands: Stable small adrenal gland nodules bilaterally. Kidneys: Unremarkable. GI tract: Colonic diverticulosis. Appendix is normal. Vascular structures: Moderate atherosclerotic disease. Lymph nodes: Unremarkable. Miscellaneous: Unremarkable. No free air or significant free fluid. Pelvic Organs: Enlarged prostate gland. Bones: Levoscoliosis of the lumbar spine. IMPRESSION: No acute intra-abdominal process identified. Colonic diverticulosis. Enlarged prostate gland. Stable, small adrenal gland nodules. Please note that all CT scans at this facility use dose modulation, iterative reconstruction, and/or weight-based dosing when appropriate to reduce radiation dose to as low as reasonably achievable. Dictated by Janey Colon MD @ Sep 27 2020 4:23PM Signed by Dr. Janey Colon @ Sep 27 2020 4:32PM
[2020-09-27 16:59] VITALS: BP 148/72; PULSE 70
== END 2020-09-27 16:56 | disposition home or self-care (01) ==
LOC: MW.ED 14:39
DX: K57.30 Diverticulosis of large intestine without perforation or abscess without bleeding (principal); I25.10 Atherosclerotic heart disease of native coronary artery without angina pectoris; E78.00 Pure hypercholesterolemia, unspecified; I10 Essential (primary) hypertension; J44.9 Chronic obstructive pulmonary disease, unspecified; M19.90 Unspecified osteoarthritis, unspecified site; I48.91 Unspecified atrial fibrillation; E66.9 Obesity, unspecified; Z68.31 Body mass index [BMI] 31.0-31.9, adult; Z88.8 Allergy status to other drugs, medicaments and biological substances; Z79.01 Long term (current) use of anticoagulants; Z79.82 Long term (current) use of aspirin; Z79.899 Other long term (current) drug therapy
CPT/HCPCS: 36415; 74177; 80053; 81001; 83605; 83690; 83735; 84484; 85025; 85610; 93005; 99284; A9270; Q9967; 93010; 99283

== ENCOUNTER 2020-11-17 06:32 | Day surgery (SDC) | payer MEDICARE, BC ==
[~2020-11-17 06:32] MED LIST changes: -Bupivacaine 0.25%/EPINEPHrine 1:200,000 10 ML SDV INJECT ONE; -Bupivacaine 25%/EPINEPHrine/PF 30 ML ONE; -Clindamycin Phosphate in D5W 600 MG in Premix Bag 1 BAG IV ONE; -Dexamethasone 4 MG/ML 5 ML MDV ONE; -Dexamethasone/Tobramycin 0.1-0.3% Ophth Oint 3.5 GM Tube ONE; -Dexamethasone/Tobramycin 0.1-0.3% Ophth Susp 2.5 ML Bottle EYEBOTH ONE; -Midazolam 1 MG/ML 2 ML SDV ONE; -Octyl 2-Cyanoacrylate 1 Tube ONE; -Ondansetron 4 MG/2 ML SDV ONE; -Propofol 200 MG/20 ML SDV ONE; -fentaNYL 100 MCG/2 ML SDV ONE; -traMADol 50 MG Tab PO PRN
[2020-11-17] MEDS ORDERED: Propofol 200 MG/20 ML SDV ONE (07:03)
[2020-11-17] MEDS ORDERED: Midazolam 1 MG/ML 2 ML SDV ONE (07:03)
[2020-11-17] MEDS ORDERED: Lidocaine 2% 5 ML SDV ONE (07:04)
[2020-11-17] MEDS ORDERED: fentaNYL 100 MCG/2 ML SDV ONE (07:04)
--- NOTE | 2020-11-17 07:19 | PCM.PREANE ---
Preanesthetic Assessment - Anesthesia/Transfusion/Family Hx Anesthesia History: Prior Anesthesia Without Reaction Other Type of Anesthesia Reaction Comment: denies any known problem in past Transfusion History: Prior Transfusion Without Reaction - Review of Systems General: No Symptoms Pulmonary: No Symptoms Cardiovascular: No Symptoms Gastrointestinal: No Symptoms Neurological: No Symptoms Other: Reports: None - Physical Assessment NPO Status Date: 11/17/20 NPO Status Time: 06:00 Height: 1.85 m Weight: 111.584 kg ASA Class: 3 Mental Status: Alert & Oriented x3 Airway Class: Mallampati = 2 Dentition: Reports: Peterman(s) Thyro-Mental Finger Breadths: 3 (SHORT THICK NECK) Mouth Opening Finger Breadths: 3 ROM/Head Extension: Full Lungs: Clear to Auscultation, Normal Respiratory Effort Cardiovascular: Regular Rate, Regular Rhythm - Allergies Allergies/Adverse Reactions: Allergies Allergy/AdvReac Type Severity Reaction Status Date / Time amoxicillin Allergy Itching Verified 11/17/20 07:06 atorvastatin [From Lipitor] Allergy Nausea and Verified 11/17/20 07:06 Vomiting cyclobenzaprine HCl Allergy Hallucinati Verified 11/17/20 07:06 [From Flexeril] ons Penicillins Allergy Itching Verified 11/17/20 07:06 - Acknowledgements Anesthesia Type Planned: MAC Pt an Appropriate Candidate for the Planned Anesthesia: Yes Alternatives and Risks of Anesthesia Discussed w Pt/Guardian: Yes Pt/Guardian Understands and Agrees with Anesthesia Plan: Yes PreAnesthesia Questionnaire HEENT History: Reports: Sinusitis, Other (See Below) (repaired deviated nasal septum) Cardiovascular History: Reports: Afib (ekg (sep 2020) a. fib, rate=), CAD, High Cholesterol, Hypertension, AR (CAD/Angioplasty 2014-with no further inte rventions.), Other (See Below) (stopped eliquis-November 14, 2020) Other Cardiovascular History: Angioplasty 03/01/15 Emergency Transluminal Coronary Angioplasty, no stent placed Respiratory History: Reports: Asthma (used inhaler "3-4 months ago"), COPD Other Respiratory History: hx pleural effusion, chest tube placement and rib resection, open flap drainage and closure of open flap drain Gastrointestinal History: Reports: Diverticulosis, GERD (controlled) Genitourinary History: Reports: BPH Musculoskeletal History: Reports: Arthritis, Back Pain, Chronic ("3-12/18"), Fracture, Neck Pain, Chronic Other Musculoskeletal History: Lumbar post laminectomy syndrome, hx fx leg Neurological History: Reports: Other (See Below) (History of Headaches-has one today-which he describes as mild) Other Neuro History: Intervertebral disc disorder with myelopathy-lumbar region Psychiatric History: Reports: Other (See Below) (alert and oriented to person, place, and time) Endocrine/Metabolic History: Reports: Obesity/BMI 30+ Hematologic History: Reports: Anticoagulation Therapy Other Hematologic History: will stop Eliquis 4 days pre-op - Infectious Disease History Infectious Disease History: Reports: Measles, Mumps Other Infectious Disease History: unsure - Past Surgical History Head Surgeries/Procedures: Reports: None HEENT Surgical History: Reports: Adenoidectomy, Tonsillectomy Respiratory Surgical History: Reports: Thoracotomy GI Surgical History: Reports: Colonoscopy Neurological Surgical History: Reports: Laminectomy, Lumbar Spine Other Musculoskeletal Surgeries/Procedures:: L3-5 Laminectomy 02/26/15 - History Comment History Comment: ETOH "1-2x a week" - SUBSTANCE USE Tobacco Use Status *Q: Current Every Day Tobacco User (for 50 years.) Tobacco Use Within Last Twelve Months: Cigarettes Second Hand Smoke Exposure: No Recreational Drug Use History: No - HOME MEDS Home Medications: Home Meds Apixaban [Eliquis] 2.5 mg PO BID 08/06/16 [History] Doxazosin [Cardura] 4 mg PO BID 08/06/16 [History] atorvaSTATin [Lipitor] 10 mg PO DAILY 08/06/16 [History] carvediloL [Coreg] 25 mg PO BID 08/06/16 [History] Albuterol [Ventolin HFA] 2 puff INH Q4H PRN 10/01/17 [History] Lisinopril 40 mg PO DAILY 10/01/17 [History] Nitroglycerin [Nitrostat] 1 tab SL ASDIRECTED PRN 10/01/17 [History] hydroCHLOROthiazide [Hydrochlorothiazide] 12.5 mg PO DAILY 10/01/17 [History] Famotidine 40 mg PO BEDTIME PRN 11/11/20 [History]
[2020-11-17] MEDS ORDERED: ePHEDrine 50 MG/ML SDV ONE (07:58)
--- NOTE | 2020-11-17 08:35 | PCM.OPNOTE ---
- General Post-Op/Procedure Note Date of Surgery/Procedure: 11/17/20 Operative Procedure(s): egd w bx. colonoscopy w snare Findings: see [id number]; will start 40 mg omprazole X 2 months Pre Op Diagnosis: abd pain Post-Op Diagnosis: Same Anesthesia Technique: Moderate Sedation Primary Surgeon: Víctor Zapata Pathology: duod ulcer bx and antrum bx colon snare polypectomy at cecum 120cm distance, and bx at 70cm for sessile polyp when scope withdraw Complications: None Condition: Good
[2020-11-17] MEDS ORDERED: 50% Dextrose in Water 50 ML Syringe IVPUSH PRN (08:44)
[2020-11-17] MEDS ORDERED: Albuterol 0.083% 2.5 MG/3 ML Neb Soln NEB PRN (08:44)
[2020-11-17] MEDS ORDERED: Naloxone 0.4 MG/ML Syringe IVPUSH PRN (08:44)
[2020-11-17] MEDS ORDERED: EPINEPHrine 1:10,000 1 MG/10 ML Syringe IVPUSH PRN (08:44)
[2020-11-17] MEDS ORDERED: Atropine 0.1 MG/ML 10 ML Syringe IVPUSH PRN ×2 (08:44)
[2020-11-17] MEDS ORDERED: fentaNYL 100 MCG/2 ML SDV IVPUSH PRN (08:44)
--- NOTE | 2020-11-17 08:46 | PCM.POSTAN ---
POST ANESTHESIA ASSESSMENT - MENTAL STATUS Mental Status: Alert, Oriented - VITAL SIGNS Vital Signs: Last Vital Signs Temp 36.0 C L 11/17/20 07:14 Pulse 81 11/17/20 07:14 Resp 18 11/17/20 07:14 BP 114/71 11/17/20 07:14 Pulse Ox 97 11/17/20 07:14 - RESPIRATORY Respiratory Status: Respiratory Rate WNL, Airway Patent, O2 Saturation Stable - CARDIOVASCULAR CV Status: Pulse Rate WNL, Blood Pressure Stable - GASTROINTESTINAL GI Status: No Symptoms - PAIN Pain Score: 0 - POST OP HYDRATION Hydration Status: Adequate & Stable - OBSERVATIONS Free Text/Narrative:: The patient appears comfortable, and in no acute distress. There were no apparent anesthetic complications at this time. Discharge to phase 2 per criteria.
--- NOTE | 2020-11-17 09:10 | PCM48HPAN ---
Post Anesthesia Note - EVALUATION WITHIN 48HRS OF ANESTHETIC Vital Signs in Normal Range: Yes Patient Participated in Evaluation: Yes Respiratory Function Stable: Yes Airway Patent: Yes Cardiovascular Function Stable: Yes Hydration Status Stable: Yes Pain Control Satisfactory: Yes Nausea and Vomiting Control Satisfactory: Yes Mental Status Recovered: Yes Vital Signs: Last Vital Signs Temp 36.0 C L 11/17/20 07:14 Pulse 67 11/17/20 08:43 Resp 19 11/17/20 08:43 BP 94/60 11/17/20 08:43 Pulse Ox 94 L 11/17/20 08:43 - COMMENTS/OBSERVATIONS Free Text/Narrative:: Doing well.
[2020-11-17 10:59] VITALS: BP 100/59; PULSE 76
--- NOTE | 2020-11-17 12:19 | OR ---
SURGEON: Víctor Zapata MD DATE OF PROCEDURE: 11/17/2020 PREOPERATIVE DIAGNOSIS: Abdominal pain. POSTOPERATIVE DIAGNOSIS: Abdominal pain. PROCEDURES PERFORMED: Esophagogastroduodenoscopy with biopsy and colonoscopy with snare polypectomy. DESCRIPTION OF PROCEDURE: EGD: The patient was taken to the endoscopy room, and with the [employer], Diprivan was administered. A well-lubricated EGD scope was gently inserted through the oropharynx, down the esophagus, passing through the gastroesophageal junction, into the stomach. The mucosa was examined upon the passage. Any etiology will be noted. Once in the stomach, we continued to advance to the distal antrum, passed through the pylorus into the second portion of the duodenum. Again, the mucosa was examined for any abnormality and etiology. The scope was then retrieved back to the stomach and then retroflexed to look at the fundus of the stomach. If a biopsy was indicated, we will biopsy the antrum, body, and gastroesophageal junction. The air will be sucked out while the scope is retrieved to reduce the patient's discomfort. The patient tolerated the procedure well. There were no intraoperative complications. Dr. Zapata was present through the whole procedure. Prior to surgery, a time-out had been called, the patient identified, procedure identified and antibiotic administered. The patient was taken to the endoscopy room. A time out was called, patient identified, and procedure identified. Diprivan was then administrated. Patient went from awake to sleep, hearing doctor talking or door closing is normal. Perineum inspection and digital examination were then performed. A well- lubricated colonoscope was gently inserted through the rectum, advanced past the rectosigmoid junction, the descending colon, splenic flexure, transverse colon, hepatic flexure, ascending colon, arrived to the cecum. Cecum was identified as dictated in the finding. Then the scope was carefully withdrawn while attention was paid to the mucosal surface for any abnormality. Air will be sucked out during the scope withdrawal. At the rectum, retroflexed to examine any rectal diseases, fistula or hemorrhoids. During mucosal examination, abnormality or polyp encountered. Using snare equipment, the abnormality or the polyp was then snared off using electrocautery. The patient tolerated procedure well. There were no intraoperative complications, and Dr. Zapata was present throughout the whole procedure. FINDINGS: EGD findings: 1. The patient is easily sedated with [employer] and Diprivan, the patient is soundly snoring. 2. Oropharynx and proximal esophagus are free of disease, stricture, inflammation, varicosity and distal esophagus at GE junction at 40 shows moderate amount of salmon-colored change, suggests some acid reflux. No ulcer or esophagitis observed. Stomach rugae are normal in appearance. There is a little bit bile, a lot of water in the stomach, and again rugae are normal in appearance. One area is black, suggests maybe resolving gastric ulcer, very small. Antrum looks fine. Duodenum has duodenitis, has inflammation, and two areas looked like ulcer in the second portion of duodenum, it was biopsied. The antrum was biopsied. Retroflexed look at the fundus of stomach, there is no hiatal hernia, and sucked out the gas while scope pulling out. The patient is on aspirin, so only two biopsies done. During the whole study, there is no food particle or jairo blood observed. Colonoscopy findings: 1. The patient is easily sedated with [employer] and Diprivan, the patient is soundly snoring. 2. Bowel prep is average. Large amount of liquid stool and some stool ball, probably from diverticulosis. 3. Colon is rather straightforward. Cecum indicated by ileocecal fold, one-to- one indentation, and ScopeGuide is pointing south. Light emittance is not observed because of body habitus and appendiceal orifice probably observed. Mucosa examined upon scope pulling out, and the patient has a sessile polyp, just like a streak, something like 10 x 2 mm, in the cecum. It was removed with snare polypectomy and burned as the patient is taking 81 mg aspirin. Another polyp was observed, 5 mm, at distance 70 when the scope coming out and it was biopsied, removed. The patient has mild to moderate diverticulosis in the left colon. No signs or symptoms of diverticulitis or inflammation. There is no other growth or disease. The patient has some internal hemorrhoids, mild, and no external hemorrhoids. The patient probably would benefit to have a repeat EGD because of the ulcer, and we will start treating with 40 mg omeprazole and need to contact the patient's primary care doctor regarding his anticoagulation, probably it is a little bit too strong. We will check on the patient clinically to determine whether he needs another EGD or needs to back off from anticoagulation. MIGUELITO / JESUS MANUEL /[id number]
== END 2020-11-17 09:12 | disposition home or self-care (01) ==
LOC: MW.SDS 06:32
PROVIDERS: ATTEND Surgery
DX: D12.0 Benign neoplasm of cecum (principal); K25.9 Gastric ulcer, unspecified as acute or chronic, without hemorrhage or perforation; K64.8 Other hemorrhoids; K29.80 Duodenitis without bleeding; I48.91 Unspecified atrial fibrillation; I25.10 Atherosclerotic heart disease of native coronary artery without angina pectoris; K21.9 Gastro-esophageal reflux disease without esophagitis; I25.2 Old myocardial infarction; I10 Essential (primary) hypertension; F17.210 Nicotine dependence, cigarettes, uncomplicated; J44.9 Chronic obstructive pulmonary disease, unspecified; E66.9 Obesity, unspecified; E78.00 Pure hypercholesterolemia, unspecified; Z88.8 Allergy status to other drugs, medicaments and biological substances; Z88.1 Allergy status to other antibiotic agents; Z88.0 Allergy status to penicillin; Z79.899 Other long term (current) drug therapy; Z79.01 Long term (current) use of anticoagulants; Z98.890 Other specified postprocedural states; Z68.32 Body mass index [BMI] 32.0-32.9, adult
CPT/HCPCS: 43239; 45380; 45385; 88305; 88312; J2250; J2704; J7120; 00813; J3010

== ENCOUNTER 2021-09-22 21:06 | Observation (INO) | payer MEDICARE, BC ==
[2021-09-22] MEDS ORDERED: Sodium Chloride 0.9% 10 ML Syringe FLUSH PRN (21:29)
[2021-09-22] MEDS ORDERED: Sodium Chloride 0.9% 2.5 ML Syringe FLUSH PRN (21:29)
[2021-09-22 22:13] LABS: BLOOD UREA NITROGEN,BUN 14 mg/dL (7.0-18.0); CARBON DIOXIDE,CO2 26.5 mmol/L (21.0-32.0); CHLORIDE,CL 98 mmol/L (98-107); GLUCOSE RANDOM 128 mg/dL (74-106); POTASSIUM,K 3.7 mmol/L (3.5-5.1); SODIUM,NA 134 mmol/L (136-148)
[2021-09-22 22:36] LABS: CORONAVIRUS COVID-19 NAA POSITIVE (NEGATIVE); INFLUENZA A NAA NEGATIVE (NEGATIVE); INFLUENZA B NAA NEGATIVE (NEGATIVE)
[2021-09-22] MEDS ORDERED: Sodium Chloride 0.9% 1,000 ML IV ONE (23:34)
[2021-09-23] MEDS ORDERED: Acetaminophen 325 MG Tab PO ONE (00:39)
[2021-09-23] MEDS ORDERED: Albuterol/Ipratropium 3.0-0.5 MG/3 ML Neb Soln NEB PRN (08:30)
[2021-09-23] MEDS ORDERED: Ondansetron 4 MG Tab.DIS PO PRN (08:30)
[2021-09-23] MEDS ORDERED: Docusate Sodium 100 MG Cap PO PRN (08:30)
[2021-09-23] MEDS ORDERED: Nitroglycerin 0.4 MG Tab.SL SL PRN (08:31)
[2021-09-23] MEDS ORDERED: Famotidine 20 MG Tab PO PRN (08:31)
[2021-09-23] MEDS ORDERED: Albuterol 8 GM Inhaler INH PRN (08:31)
[2021-09-23] MEDS ORDERED: Apixaban 5 MG Tab PO SCH (09:00)
[2021-09-23] MEDS ORDERED: Hydrochlorothiazide 12.5 MG Cap PO SCH (09:00)
[2021-09-23] MEDS ORDERED: atorvaSTATin 20 MG Tab PO SCH (09:00)
[2021-09-23] MEDS ORDERED: Doxazosin 4 MG Tab PO SCH (09:00)
[2021-09-23] MEDS ORDERED: Carvedilol 12.5 MG Tab PO SCH (09:00)
[2021-09-23] MEDS ORDERED: Lisinopril 10 MG Tab PO SCH (09:00)
[2021-09-23] MEDS ORDERED: Apixaban 2.5 MG Tab PO SCH (09:00)
[2021-09-23 12:58] LABS: CARBON DIOXIDE,CO2 28.6 mmol/L (21.0-32.0); POTASSIUM,K 3.5 mmol/L (3.5-5.1)
[2021-09-23 15:04] VITALS: BP 110/68; PULSE 85
== END 2021-09-23 15:00 | disposition home or self-care (01) ==
LOC: MW.ED 21:06 → MW.MS 09-23 00:45
PROVIDERS: ADMIT Student in an Organized Health Care Education/Training Program; ATTEND Student in an Organized Health Care Education/Training Program
DX: U07.1 COVID-19 (principal); R53.1 Weakness; R42 Dizziness and giddiness; J44.9 Chronic obstructive pulmonary disease, unspecified; I48.91 Unspecified atrial fibrillation; I25.10 Atherosclerotic heart disease of native coronary artery without angina pectoris; I25.2 Old myocardial infarction; E78.00 Pure hypercholesterolemia, unspecified; K21.9 Gastro-esophageal reflux disease without esophagitis; E66.9 Obesity, unspecified; N40.0 Benign prostatic hyperplasia without lower urinary tract symptoms; I48.20 Chronic atrial fibrillation, unspecified; Z98.890 Other specified postprocedural states; Z88.1 Allergy status to other antibiotic agents; Z88.0 Allergy status to penicillin; Z88.8 Allergy status to other drugs, medicaments and biological substances; Z79.899 Other long term (current) drug therapy; Z79.01 Long term (current) use of anticoagulants; Z68.31 Body mass index [BMI] 31.0-31.9, adult
CPT/HCPCS: 0240U; 36415; 71045; 71045-26; 80053; 81001; 83735; 84484; 85025; 93005; 93306; 97161-GP; 99285-25; A9270-GY; G0378; J7030

== ENCOUNTER 2022-01-07 20:49 | Emergency (ER) | payer MEDICARE, BC ==
[2022-01-07] MEDS ORDERED: Aspirin 81 MG Tab.Chew PO ONE (21:35)
[2022-01-07 23:04] LABS: BLOOD UREA NITROGEN,BUN 9 mg/dL (7.0-18.0); CARBON DIOXIDE,CO2 25.5 mmol/L (21.0-32.0); CHLORIDE,CL 104 mmol/L (98-107); GLUCOSE RANDOM 88 mg/dL (74-106); POTASSIUM,K 3.2 mmol/L (3.5-5.1); SODIUM,NA 139 mmol/L (136-148)
[2022-01-07] MEDS ORDERED: Potassium Chloride 10% 20 MEQ/15 ML Soln 30 ML UD Cup PO ONE (23:49)
[2022-01-08 01:31] VITALS: BP 102/65; PULSE 76
== END 2022-01-08 01:27 | disposition home or self-care (01) ==
LOC: MW.ED 20:49
DX: R51.9 Headache, unspecified (principal); R42 Dizziness and giddiness; I25.10 Atherosclerotic heart disease of native coronary artery without angina pectoris; J44.9 Chronic obstructive pulmonary disease, unspecified; I10 Essential (primary) hypertension; I48.91 Unspecified atrial fibrillation; I25.2 Old myocardial infarction; K21.9 Gastro-esophageal reflux disease without esophagitis; E66.9 Obesity, unspecified; Z68.28 Body mass index [BMI] 28.0-28.9, adult; Z88.0 Allergy status to penicillin; Z79.899 Other long term (current) drug therapy; Z79.01 Long term (current) use of anticoagulants
CPT/HCPCS: 36415; 71045; 80053; 83735; 84484; 85025; 93005; 99284; A9270; 93010

== ENCOUNTER 2022-03-27 08:27 | Emergency (ER) | payer MEDICARE, BC ==
[2022-03-27] MEDS ORDERED: Famotidine 20 MG/2 ML SDV IVPUSH ONE (08:51)
[2022-03-27] MEDS ORDERED: Alum Hydro/Mag Hydro/Simeth XS 15 ML, Metoclopramide 5 MG, Lidocaine 2% 5 ML PO ONE ×3 (08:52)
[2022-03-27 09:21] LABS: CARBON DIOXIDE,CO2 25.5 mmol/L (21.0-32.0)
[2022-03-27] MEDS ORDERED: Iopamidol 755 MG/ML 500 ML Multipack Bottle IVPUSH STA (10:42)
[2022-03-27 11:29] VITALS: BP 154/82; PULSE 64
== END 2022-03-27 12:00 | disposition home or self-care (01) ==
LOC: MW.ED 08:27
DX: K80.80 Other cholelithiasis without obstruction (principal); K29.70 Gastritis, unspecified, without bleeding; I25.10 Atherosclerotic heart disease of native coronary artery without angina pectoris; J44.9 Chronic obstructive pulmonary disease, unspecified; I10 Essential (primary) hypertension; I48.91 Unspecified atrial fibrillation; E78.00 Pure hypercholesterolemia, unspecified; I25.2 Old myocardial infarction; K21.9 Gastro-esophageal reflux disease without esophagitis; E66.9 Obesity, unspecified; Z88.0 Allergy status to penicillin; Z88.8 Allergy status to other drugs, medicaments and biological substances; Z79.01 Long term (current) use of anticoagulants; Z79.899 Other long term (current) drug therapy; Z68.30 Body mass index [BMI] 30.0-30.9, adult; Z20.822 Contact with and (suspected) exposure to COVID-19
CPT/HCPCS: 36415; 74177; 80053; 83605; 83690; 83735; 84484; 85025; 93005; 96374; 99284; A9270; J3490; Q9967; U0002; 93010; 99283

== ENCOUNTER 2022-07-27 16:52 | Emergency (ER) | payer MEDICARE, BC ==
[2022-07-27] MEDS ORDERED: Sodium Chloride 0.9% 2.5 ML Syringe FLUSH PRN (17:14)
[2022-07-27] MEDS ORDERED: Sodium Chloride 0.9% 10 ML Syringe FLUSH PRN (17:14)
[2022-07-27] MEDS ORDERED: Sodium Chloride 0.9% 1,000 ML IV ONE (17:15)
[2022-07-27] MEDS ORDERED: Lidocaine 5% 700 MG Patch TOP ONE (18:46)
[2022-07-27 19:10] VITALS: BP 173/97; PULSE 73
== END 2022-07-27 19:08 | disposition home or self-care (01) ==
LOC: MW.ED 16:52
DX: R51.9 Headache, unspecified (principal); I25.10 Atherosclerotic heart disease of native coronary artery without angina pectoris; J44.9 Chronic obstructive pulmonary disease, unspecified; I10 Essential (primary) hypertension; E66.9 Obesity, unspecified; Z68.27 Body mass index [BMI] 27.0-27.9, adult; Z88.0 Allergy status to penicillin; Z88.8 Allergy status to other drugs, medicaments and biological substances; Z79.899 Other long term (current) drug therapy; Z79.01 Long term (current) use of anticoagulants; Z20.822 Contact with and (suspected) exposure to COVID-19
CPT/HCPCS: 36415; 70450; 71045; 80053; 83605; 84484; 85025; 93005; 96360; 99284; A9270; J3490; J7030; U0002

== ENCOUNTER 2022-12-15 12:22 | Emergency (ER) | payer MEDICARE, BC ==
[2022-12-15 12:36] VITALS: BP 168/97; PULSE 93
== END 2022-12-15 14:29 | disposition home or self-care (01) ==
LOC: MW.ED 12:22
DX: R10.31 Right lower quadrant pain (principal); G62.9 Polyneuropathy, unspecified; I10 Essential (primary) hypertension; I48.91 Unspecified atrial fibrillation; E78.5 Hyperlipidemia, unspecified; J44.9 Chronic obstructive pulmonary disease, unspecified; I25.10 Atherosclerotic heart disease of native coronary artery without angina pectoris; I25.2 Old myocardial infarction; K21.9 Gastro-esophageal reflux disease without esophagitis; E66.9 Obesity, unspecified; Z79.01 Long term (current) use of anticoagulants; Z88.0 Allergy status to penicillin; Z88.8 Allergy status to other drugs, medicaments and biological substances; Z68.29 Body mass index [BMI] 29.0-29.9, adult
CPT/HCPCS: 74176; 74176-26; 99283; 99284

== ENCOUNTER 2023-06-12 09:10 | Observation (INO) | payer MEDICARE, BC ==
[2023-06-12] MEDS ORDERED: Albuterol 8 GM Inhaler INH STA (09:57)
[2023-06-12 10:19] LABS: BASOPHILS PERCENT AUTO 0.4 % (0.0-1.5); EOSINOPHILS ABSOLUTE AUTO 0.1 K/uL (0.0-0.7); EOSINOPHILS PERCENT AUTO 1.3 % (0.0-7.0); HEMATOCRIT 46.9 % (38.0-50.0); HEMOGLOBIN 15.6 g/dL (13.0-17.0); LYMPHOCYTES ABSOLUTE AUTO 1.4 K/uL (0.6-2.4); LYMPHOCYTES PERCENT AUTO 17.9 % (16.0-40.0); MEAN CORPUSCULAR HEMOGLOBIN 32.9 pg (27.0-32.0); MEAN CORPUSCULAR HGB CONC 33.3 g/dL (31.0-37.0); MEAN CORPUSCULAR VOLUME 98.9 fL (80.0-98.0); MONOCYTES ABSOLUTE AUTO 0.6 K/uL (0.0-0.8); MONOCYTES PERCENT AUTO 8.2 % (0.0-15.0); NEUTROPHILS ABSOLUTE AUTO 5.6 K/uL (1.4-5.7); NEUTROPHILS PERCENT AUTO 72.2 % (48.0-80.0); NRBC ABSOLUTE 0 K/uL; PLATELET COUNT,PLT 199 K/uL (150-400); RED BLOOD CELL COUNT 4.74 M/uL (4.50-5.90); WHITE BLOOD CELL COUNT,WBC 7.78 K/uL (4.0-11.0)
[2023-06-12 10:32] LABS: CORONAVIRUS COVID-19 NAA NEGATIVE (NEGATIVE); INFLUENZA A NAA NEGATIVE (NEGATIVE); INFLUENZA B NAA NEGATIVE (NEGATIVE)
[2023-06-12 10:54] LABS: A/G RATIO 1.1 (0.9-1.6); BILIRUBIN TOTAL 1.2 mg/dL (0.2-1.0); CALCIUM 8.6 mg/dL (8.5-10.1); CARBON DIOXIDE,CO2 25.5 mmol/L (21.0-32.0); EST CRCL DRUG DOSING (CG) 67.9 mL/min; POTASSIUM,K 4.6 mmol/L (3.5-5.1); PROTEIN TOTAL,TP 7.7 g/dL (6.4-8.2)
[2023-06-12] MEDS ORDERED: cefTRIAXone 1 GM in Sodium Chloride 0.9% 50 ML IV ONE (11:24)
[2023-06-12] MEDS ORDERED: Azithromycin 500 MG in Sodium Chloride 0.9% 250 ML IV ONE (11:26)
[2023-06-12] MEDS ORDERED: Sodium Chloride 0.9% 2.5 ML Syringe FLUSH PRN (12:13)
[2023-06-12] MEDS ORDERED: Ondansetron 4 MG/2 ML SDV IVPUSH PRN (12:13)
[2023-06-12] MEDS ORDERED: Docusate Sodium 100 MG Cap PO PRN (12:13)
[2023-06-12] MEDS ORDERED: Sodium Chloride 0.9% 10 ML Syringe FLUSH PRN (12:13)
[2023-06-12] MEDS ORDERED: Acetaminophen 325 MG Tab PO PRN (12:13)
[2023-06-12] MEDS ORDERED: Sodium Chloride 0.9% 1,000 ML IV ONE (12:30)
[2023-06-12] MEDS ORDERED: Albuterol/Ipratropium 3.0-0.5 MG/3 ML Neb Soln NEB PRN (13:08)
[2023-06-12] MEDS ORDERED: Albuterol 8 GM Inhaler INH PRN (14:38)
[2023-06-12] MEDS ORDERED: Benzonatate 100 MG Cap PO PRN (15:31)
[2023-06-12] MEDS ORDERED: Nicotine 14 MG/24 Hr Patch TRDERM PRN (18:48)
[2023-06-12] MEDS: Carvedilol 12.5 MG Tab PO SCH (20:32)
[2023-06-12] MEDS: Apixaban 5 MG Tab PO SCH (20:33)
[2023-06-12] MEDS ORDERED: Doxazosin 2 MG Tab PO SCH (21:00)
[2023-06-12] MEDS ORDERED: UMECLIDINIUM BROMIDE 62.5 MCG INH SCH (21:00)
[2023-06-13 05:48] LABS: BASOPHILS PERCENT AUTO 0.4 % (0.0-1.5); EOSINOPHILS ABSOLUTE AUTO 0.2 K/uL (0.0-0.7); EOSINOPHILS PERCENT AUTO 3.2 % (0.0-7.0); HEMATOCRIT 43.1 % (38.0-50.0); HEMOGLOBIN 14.7 g/dL (13.0-17.0); LYMPHOCYTES ABSOLUTE AUTO 1.8 K/uL (0.6-2.4); LYMPHOCYTES PERCENT AUTO 25.8 % (16.0-40.0); MEAN CORPUSCULAR HEMOGLOBIN 33.2 pg (27.0-32.0); MEAN CORPUSCULAR HGB CONC 34.1 g/dL (31.0-37.0); MEAN CORPUSCULAR VOLUME 97.3 fL (80.0-98.0); MONOCYTES ABSOLUTE AUTO 0.8 K/uL (0.0-0.8); MONOCYTES PERCENT AUTO 11.3 % (0.0-15.0); NEUTROPHILS ABSOLUTE AUTO 4.1 K/uL (1.4-5.7); NEUTROPHILS PERCENT AUTO 59.3 % (48.0-80.0); PLATELET COUNT,PLT 178 K/uL (150-400); RED BLOOD CELL COUNT 4.43 M/uL (4.50-5.90); WHITE BLOOD CELL COUNT,WBC 6.91 K/uL (4.0-11.0)
[2023-06-13 05:59] LABS: EST CRCL DRUG DOSING (CG) 67.9 mL/min; POTASSIUM,K 4.2 mmol/L (3.5-5.1)
[2023-06-13] MEDS ORDERED: Omeprazole 20 MG Cap.CR PO SCH (07:30)
[2023-06-13] MEDS: Carvedilol 12.5 MG Tab PO SCH (08:23)
[2023-06-13] MEDS: Apixaban 5 MG Tab PO SCH (08:24)
[2023-06-13] MEDS ORDERED: Lisinopril 10 MG Tab PO SCH (09:00)
[2023-06-13] MEDS ORDERED: UMECLIDINIUM BROMIDE 62.5 MCG INH SCH (09:00)
[2023-06-13] MEDS ORDERED: Azithromycin 250 MG Tab PO ONE (09:01)
[2023-06-13] MEDS ORDERED: cefTRIAXone 1 GM in Sodium Chloride 0.9% 50 ML IV SCH ×2 (09:15→11:00)
[2023-06-13 10:19] VITALS: BP 153/91; PULSE 62
[2023-06-13] MEDS ORDERED: Azithromycin 500 MG in Sodium Chloride 0.9% 250 ML IV SCH (12:00)
[2023-06-13] MEDS ORDERED: atorvaSTATin 40 MG Tab PO SCH (21:00)
== END 2023-06-13 10:30 | disposition home or self-care (01) ==
LOC: MW.ED 09:10 → MW.MS 12:03
PROVIDERS: ADMIT Family Medicine; ATTEND Family Medicine
DX: J18.9 Pneumonia, unspecified organism (principal); J43.1 Panlobular emphysema; I25.10 Atherosclerotic heart disease of native coronary artery without angina pectoris; I48.91 Unspecified atrial fibrillation; I10 Essential (primary) hypertension; I25.2 Old myocardial infarction; E78.5 Hyperlipidemia, unspecified; Z79.899 Other long term (current) drug therapy; Z88.0 Allergy status to penicillin; F17.210 Nicotine dependence, cigarettes, uncomplicated; Z88.8 Allergy status to other drugs, medicaments and biological substances; Z79.01 Long term (current) use of anticoagulants; Z95.5 Presence of coronary angioplasty implant and graft; Z90.89 Acquired absence of other organs; Z98.890 Other specified postprocedural states
CPT/HCPCS: 0240U; 36415; 71045; 80048; 80053; 83735; 84484; 85025; 87040; 93005; 96374; 99285; A9270; J0696; J3490; J7030; 87070; 87205; 93010; 96376; 99222; 99238; 99283; G0378

== ENCOUNTER 2023-12-07 15:37 | Emergency (ER) | payer MEDICARE, BC ==
[2023-12-07] MEDS: Sodium Chloride 0.9% 2.5 ML Syringe FLUSH PRN (16:46)
[2023-12-07] MEDS: Sodium Chloride 0.9% 10 ML Syringe FLUSH PRN (16:46)
[2023-12-07 16:51] LABS: BASOPHILS ABSOLUTE AUTO 0.08 K/uL (0.00-0.20); BASOPHILS PERCENT AUTO 0.8 % (0.0-1.0); EOSINOPHILS ABSOLUTE AUTO 0.28 K/uL (0.00-0.45); EOSINOPHILS PERCENT AUTO 2.8 % (0.0-6.0); HEMATOCRIT 41.6 % (42.0-52.0); HEMOGLOBIN 14.1 g/dL (14.0-18.0); IMMATURE GRAN ABSOLUTE AUTO 0.02 K/uL (0.00-0.05); IMMATURE GRAN PERCENT AUTO 0.2 % (0.0-0.4); LYMPHOCYTES ABSOLUTE AUTO 2.79 K/uL (1.00-4.80); LYMPHOCYTES PERCENT AUTO 27.7 % (24.0-44.0); MEAN CORPUSCULAR HEMOGLOBIN 32.9 pg (28.0-32.0); MEAN CORPUSCULAR HGB CONC 33.9 g/dL (32.0-36.0); MEAN CORPUSCULAR VOLUME 97.2 fL (83.0-99.0); MEAN PLATELET VOLUME 11.1 fL (9.4-12.4); MONOCYTES PERCENT AUTO 9.9 % (0.0-8.0); NEUTROPHILS PERCENT AUTO 58.6 % (41.0-71.0); PLATELET COUNT,PLT 203 K/uL (150-400); RED BLOOD CELL COUNT 4.28 M/uL (4.52-5.90); WHITE BLOOD CELL COUNT,WBC 10.07 K/uL (3.9-11.3)
[2023-12-07] MEDS: Metoclopramide 10 MG/2 ML SDV IVPUSH ONE (17:29)
[2023-12-07 17:55] LABS: A/G RATIO 1.2 (0.9-1.6); ALBUMIN 3.6 g/dL (3.4-5.0); BILIRUBIN TOTAL 0.9 mg/dL (0.2-1.0); CALCIUM 9.1 mg/dL (8.5-10.1); CARBON DIOXIDE,CO2 23.6 mmol/L (21.0-32.0); EST CRCL DRUG DOSING (CG) 66.82 mL/min; PROTEIN TOTAL,TP 6.6 g/dL (6.4-8.2)
[2023-12-07] MEDS: Iopamidol 755 MG/ML 500 ML Multipack Bottle IVPUSH ONE (19:14)
[2023-12-07 20:36] VITALS: BP 146/80; PULSE 75
== END 2023-12-07 20:35 | disposition home or self-care (01) ==
LOC: MW.ED 15:37
DX: S09.90XA Unspecified injury of head, initial encounter (principal); I10 Essential (primary) hypertension; I25.10 Atherosclerotic heart disease of native coronary artery without angina pectoris; I25.2 Old myocardial infarction; J44.9 Chronic obstructive pulmonary disease, unspecified; K21.9 Gastro-esophageal reflux disease without esophagitis; E78.00 Pure hypercholesterolemia, unspecified; E66.9 Obesity, unspecified; Z88.0 Allergy status to penicillin; Z88.8 Allergy status to other drugs, medicaments and biological substances; Z79.2 Long term (current) use of antibiotics; Z79.899 Other long term (current) drug therapy; Z75.8 Other problems related to medical facilities and other health care; Z68.29 Body mass index [BMI] 29.0-29.9, adult; W19.XXXA Unspecified fall, initial encounter
CPT/HCPCS: 36415; 70450; 70496; 70498; 80053; 85025; 93005; 96374; 99284; J2765; J3490; Q9967; 93010; 99282

== ENCOUNTER 2024-03-17 13:17 | Emergency (ER) | payer MEDICARE, BC ==
[2024-03-17] MEDS: Sodium Chloride 0.9% 1,000 ML IV ONE (14:23)
[2024-03-17] MEDS: Ketorolac 30 MG/ML SDV IVPUSH ONE (14:23)
[2024-03-17] MEDS: Lidocaine 4% 1 each Patch TOP STA (14:23)
[2024-03-17 14:40] LABS: BASOPHILS ABSOLUTE AUTO 0.06 K/uL (0.00-0.20); BASOPHILS PERCENT AUTO 0.5 % (0.0-1.0); EOSINOPHILS ABSOLUTE AUTO 0.19 K/uL (0.00-0.45); EOSINOPHILS PERCENT AUTO 1.6 % (0.0-6.0); HEMATOCRIT 43.9 % (42.0-52.0); HEMOGLOBIN 14.6 g/dL (14.0-18.0); IMMATURE GRAN ABSOLUTE AUTO 0.04 K/uL (0.00-0.05); IMMATURE GRAN PERCENT AUTO 0.3 % (0.0-0.4); LYMPHOCYTES ABSOLUTE AUTO 2.96 K/uL (1.00-4.80); LYMPHOCYTES PERCENT AUTO 25.2 % (24.0-44.0); MEAN CORPUSCULAR HEMOGLOBIN 32.3 pg (28.0-32.0); MEAN CORPUSCULAR HGB CONC 33.3 g/dL (32.0-36.0); MEAN CORPUSCULAR VOLUME 97.1 fL (83.0-99.0); MEAN PLATELET VOLUME 11.8 fL (9.4-12.4); MONOCYTES ABSOLUTE AUTO 1.09 K/uL (0.00-0.80); MONOCYTES PERCENT AUTO 9.3 % (0.0-8.0); NEUTROPHILS PERCENT AUTO 63.1 % (41.0-71.0); PLATELET COUNT,PLT 185 K/uL (150-400); RED BLOOD CELL COUNT 4.52 M/uL (4.52-5.90); WHITE BLOOD CELL COUNT,WBC 11.74 K/uL (3.9-11.3)
[2024-03-17 15:13] LABS: A/G RATIO 1.2 (0.9-1.6); ALBUMIN 3.7 g/dL (3.4-5.0); BILIRUBIN TOTAL 1.1 mg/dL (0.2-1.0); CALCIUM 8.7 mg/dL (8.5-10.1); CARBON DIOXIDE,CO2 23.4 mmol/L (21.0-32.0); CREATININE 0.9 mg/dL (0.8-1.3); EST CRCL DRUG DOSING (CG) 74.25 mL/min; PROTEIN TOTAL,TP 6.9 g/dL (6.4-8.2)
[2024-03-17] MEDS: Ondansetron 4 MG/2 ML SDV IVPUSH ONE (15:35)
[2024-03-17] MEDS: Morphine 4 MG/ML Syringe IVPUSH ONE (15:35)
[2024-03-17 15:47] LABS: APPEARANCE,URINE CLEAR; BILIRUBIN,URINE NEGATIVE (NEGATIVE); COLOR,URINE YELLOW; GLUCOSE,URINE NEGATIVE (NEGATIVE); KETONES,URINE NEGATIVE (NEGATIVE); LEUKOCYTE ESTERASE,URINE NEGATIVE (NEGATIVE); NITRITE,URINE NEGATIVE (NEGATIVE); OCCULT BLOOD,URINE NEGATIVE (NEGATIVE); PROTEIN,URINE NEGATIVE (NEGATIVE); UROBILINOGEN,URINE 0.2 EU/dL (<2.0)
[2024-03-17 17:05] VITALS: BP 164/101; PULSE 67
[2024-03-17] MEDS: Acetaminophen/oxyCODONE 325-5 MG Tab PO ONE (17:13)
== END 2024-03-17 17:14 | disposition home or self-care (01) ==
LOC: MW.ED 13:17
DX: M54.9 Dorsalgia, unspecified (principal); I10 Essential (primary) hypertension; E78.00 Pure hypercholesterolemia, unspecified; I25.10 Atherosclerotic heart disease of native coronary artery without angina pectoris; I25.2 Old myocardial infarction; J44.9 Chronic obstructive pulmonary disease, unspecified; K21.9 Gastro-esophageal reflux disease without esophagitis; Z86.16 Personal history of COVID-19; F17.210 Nicotine dependence, cigarettes, uncomplicated; Z75.8 Other problems related to medical facilities and other health care; Z88.0 Allergy status to penicillin; Z88.8 Allergy status to other drugs, medicaments and biological substances; Z79.899 Other long term (current) drug therapy; Z79.51 Long term (current) use of inhaled steroids; Z79.01 Long term (current) use of anticoagulants
CPT/HCPCS: 36415; 71250; 80053; 81003; 85025; 96361; 96374; 96375; 99284; A9270; J1885; J2270; J2405; J7030

== ENCOUNTER 2024-03-19 09:21 | Emergency (ER) | payer MEDICARE, BC ==
[2024-03-19] MEDS ORDERED: Naloxone 0.4 MG/ML SDV IVPUSH PRN (09:33)
[2024-03-19 09:36] VITALS: BP 173/68
[2024-03-19] MEDS: Morphine 4 MG/ML Syringe IVPUSH ONE ×2 (09:57→11:31)
[2024-03-19] MEDS: Sodium Chloride 0.9% 2.5 ML Syringe FLUSH PRN (09:58)
[2024-03-19] MEDS: Sodium Chloride 0.9% 10 ML Syringe FLUSH PRN (09:58)
[2024-03-19 10:02] LABS: BASOPHILS ABSOLUTE AUTO 0.06 K/uL (0.00-0.20); BASOPHILS PERCENT AUTO 0.6 % (0.0-1.0); EOSINOPHILS ABSOLUTE AUTO 0.11 K/uL (0.00-0.45); EOSINOPHILS PERCENT AUTO 1.1 % (0.0-6.0); HEMATOCRIT 44.2 % (42.0-52.0); HEMOGLOBIN 14.5 g/dL (14.0-18.0); IMMATURE GRAN ABSOLUTE AUTO 0.03 K/uL (0.00-0.05); IMMATURE GRAN PERCENT AUTO 0.3 % (0.0-0.4); LYMPHOCYTES ABSOLUTE AUTO 1.51 K/uL (1.00-4.80); LYMPHOCYTES PERCENT AUTO 15.7 % (24.0-44.0); MEAN CORPUSCULAR HEMOGLOBIN 32.4 pg (28.0-32.0); MEAN CORPUSCULAR HGB CONC 32.8 g/dL (32.0-36.0); MEAN CORPUSCULAR VOLUME 98.9 fL (83.0-99.0); MEAN PLATELET VOLUME 11.9 fL (9.4-12.4); MONOCYTES PERCENT AUTO 8.3 % (0.0-8.0); NEUTROPHILS ABSOLUTE AUTO 7.13 K/uL (1.80-7.70); PLATELET COUNT,PLT 171 K/uL (150-400); RED BLOOD CELL COUNT 4.47 M/uL (4.52-5.90); WHITE BLOOD CELL COUNT,WBC 9.64 K/uL (3.9-11.3)
[2024-03-19 10:34] LABS: A/G RATIO 1.2 (0.9-1.6); ALBUMIN 3.8 g/dL (3.4-5.0); BILIRUBIN TOTAL 1.1 mg/dL (0.2-1.0); CALCIUM 8.9 mg/dL (8.5-10.1); CARBON DIOXIDE,CO2 26.1 mmol/L (21.0-32.0); CREATININE 0.9 mg/dL (0.8-1.3); EST CRCL DRUG DOSING (CG) 74.25 mL/min; POTASSIUM,K 4.2 mmol/L (3.5-5.1); PROTEIN TOTAL,TP 6.9 g/dL (6.4-8.2)
[2024-03-19] MEDS: Iopamidol 755 MG/ML 500 ML Multipack Bottle IVPUSH STA (11:10)
[2024-03-19 11:31] LABS: APPEARANCE,URINE CLEAR; BILIRUBIN,URINE NEGATIVE (NEGATIVE); COLOR,URINE YELLOW; GLUCOSE,URINE NEGATIVE (NEGATIVE); KETONES,URINE NEGATIVE (NEGATIVE); LEUKOCYTE ESTERASE,URINE NEGATIVE (NEGATIVE); NITRITE,URINE NEGATIVE (NEGATIVE); OCCULT BLOOD,URINE TRACE-INTACT (NEGATIVE); PROTEIN,URINE NEGATIVE (NEGATIVE); UROBILINOGEN,URINE 0.2 EU/dL (<2.0)
[2024-03-19 11:38] LABS: BACTERIA,URINE RARE (NEGATIVE); EPITHELIAL CELLS,URINE RARE (NONE-FEW); MUCUS,URINE LIGHT (NONE-MOD); RBC,URINE NONE SEEN (0-2/HPF); WBC,URINE 0-1 (0-5/HPF)
[2024-03-19] MEDS: Cyclobenzaprine 10 MG Tab PO ONE (12:39)
[2024-03-19 14:45] VITALS: PULSE 66
== END 2024-03-19 14:52 | disposition home or self-care (01) ==
LOC: MW.ED 09:21
DX: M54.9 Dorsalgia, unspecified (principal); I10 Essential (primary) hypertension; I25.10 Atherosclerotic heart disease of native coronary artery without angina pectoris; I25.2 Old myocardial infarction; I48.91 Unspecified atrial fibrillation; E78.00 Pure hypercholesterolemia, unspecified; J44.9 Chronic obstructive pulmonary disease, unspecified; K21.9 Gastro-esophageal reflux disease without esophagitis; E66.9 Obesity, unspecified; Z86.16 Personal history of COVID-19; Z79.899 Other long term (current) drug therapy; Z79.01 Long term (current) use of anticoagulants; Z88.0 Allergy status to penicillin; Z88.8 Allergy status to other drugs, medicaments and biological substances; Z75.8 Other problems related to medical facilities and other health care; Z68.31 Body mass index [BMI] 31.0-31.9, adult
CPT/HCPCS: 36415; 71275; 74174; 80053; 81001; 83690; 85025; 96374; 96376; 99284; A9270; J2270; J3490; Q9967

== ENCOUNTER 2024-03-22 08:42 | Observation (INO) | payer MEDICARE, BC ==
[2024-03-22] MEDS ORDERED: Naloxone 0.4 MG/ML SDV IVPUSH PRN ×2 (09:10→12:30)
[2024-03-22] MEDS: LORazepam 2 MG/ML SDV IVPUSH STA (09:32)
[2024-03-22] MEDS: Sodium Chloride 0.9% 2.5 ML Syringe FLUSH PRN (09:48)
[2024-03-22] MEDS: Sodium Chloride 0.9% 10 ML Syringe FLUSH PRN (09:48)
[2024-03-22] MEDS: HYDROmorphone 1 MG/ML Syringe IVPUSH ONE (09:58)
[2024-03-22 10:19] LABS: BASOPHILS ABSOLUTE AUTO 0.05 K/uL (0.00-0.20); BASOPHILS PERCENT AUTO 0.5 % (0.0-1.0); EOSINOPHILS ABSOLUTE AUTO 0.07 K/uL (0.00-0.45); EOSINOPHILS PERCENT AUTO 0.6 % (0.0-6.0); HEMATOCRIT 43.8 % (42.0-52.0); HEMOGLOBIN 14.8 g/dL (14.0-18.0); IMMATURE GRAN ABSOLUTE AUTO 0.03 K/uL (0.00-0.05); IMMATURE GRAN PERCENT AUTO 0.3 % (0.0-0.4); LYMPHOCYTES ABSOLUTE AUTO 1.26 K/uL (1.00-4.80); LYMPHOCYTES PERCENT AUTO 11.4 % (24.0-44.0); MEAN CORPUSCULAR HEMOGLOBIN 32.7 pg (28.0-32.0); MEAN CORPUSCULAR HGB CONC 33.8 g/dL (32.0-36.0); MEAN CORPUSCULAR VOLUME 96.9 fL (83.0-99.0); MEAN PLATELET VOLUME 11.8 fL (9.4-12.4); MONOCYTES ABSOLUTE AUTO 0.59 K/uL (0.00-0.80); MONOCYTES PERCENT AUTO 5.3 % (0.0-8.0); NEUTROPHILS ABSOLUTE AUTO 9.06 K/uL (1.80-7.70); NEUTROPHILS PERCENT AUTO 81.9 % (41.0-71.0); PLATELET COUNT,PLT 164 K/uL (150-400); RED BLOOD CELL COUNT 4.52 M/uL (4.52-5.90); WHITE BLOOD CELL COUNT,WBC 11.06 K/uL (3.9-11.3)
[2024-03-22 10:31] LABS: CALCIUM 9.1 mg/dL (8.5-10.1); EST CRCL DRUG DOSING (CG) 66.82 mL/min; POTASSIUM,K 4.6 mmol/L (3.5-5.1)
[2024-03-22 11:21] LABS: APPEARANCE,URINE CLOUDY; BILIRUBIN,URINE NEGATIVE (NEGATIVE); COLOR,URINE YELLOW; GLUCOSE,URINE NEGATIVE (NEGATIVE); KETONES,URINE NEGATIVE (NEGATIVE); LEUKOCYTE ESTERASE,URINE NEGATIVE (NEGATIVE); NITRITE,URINE NEGATIVE (NEGATIVE); OCCULT BLOOD,URINE NEGATIVE (NEGATIVE); PROTEIN,URINE NEGATIVE (NEGATIVE); UROBILINOGEN,URINE 0.2 EU/dL (<2.0)
[2024-03-22 11:29] LABS: BACTERIA,URINE FEW (NEGATIVE); EPITHELIAL CELLS,URINE RARE (NONE-FEW); MUCUS,URINE LIGHT (NONE-MOD); RBC,URINE NONE SEEN (0-2/HPF); WBC,URINE 0-1 (0-5/HPF)
[2024-03-22 11:30] LABS: AMORPHOUS SEDIMENT,URINE MODERATE (NEGATIVE)
[2024-03-22] MEDS ORDERED: Albuterol 8 GM Inhaler INH PRN (12:23)
[2024-03-22] MEDS ORDERED: Melatonin 3 MG Tab PO PRN (12:30)
[2024-03-22] MEDS ORDERED: Ondansetron 4 MG/2 ML SDV IVPUSH PRN (12:30)
[2024-03-22] MEDS ORDERED: Morphine 2 MG/ML SYRINGE IVPUSH PRN (12:30)
[2024-03-22] MEDS ORDERED: Acetaminophen 325 MG Tab PO PRN (12:30)
[2024-03-22] MEDS ORDERED: Albuterol/Ipratropium 3.0-0.5 MG/3 ML Neb Soln NEB PRN (12:30)
[2024-03-22] MEDS ORDERED: Lisinopril 10 MG Tab PO SCH (12:44)
[2024-03-22] MEDS ORDERED: CAPSAICIN TOP PRN (12:51)
[2024-03-22] MEDS: Acetaminophen/oxyCODONE 325-5 MG Tab PO SCH (13:00)
[2024-03-22] MEDS: Polyethylene Glycol 3350 Powder 17 GM Packet PO SCH (13:58)
[2024-03-22] MEDS: Methocarbamol 750 MG Tab PO SCH (13:59)
[2024-03-22] MEDS: Sodium Chloride 0.9% 1,000 ML IV SCH (14:00)
[2024-03-22] MEDS: Non-Formulary Medication 1 Each (Lisinopril [Lisinopril] 40 MG Tablet) PO SCH (14:18)
[2024-03-22] MEDS: Non-Formulary Medication 1 Each (Umeclidinium Bromide 62.5 MCG Blst.W.Dev) IH SCH (14:18)
[2024-03-22] MEDS: Pantoprazole 40 MG Tab.CR PO SCH (14:23)
[2024-03-22 14:28] LABS: MAGNESIUM 2.1 mg/dL (1.8-2.4)
[2024-03-22] MEDS: Lisinopril 10 MG Tab PO SCH (14:31)
[2024-03-22] MEDS: UMECLIDINIUM INH SCH (20:19)
[2024-03-22] MEDS ORDERED: Doxazosin 2 MG Tab PO SCH (21:00)
[2024-03-22] MEDS: Apixaban 5 MG Tab PO SCH (21:08)
[2024-03-22] MEDS: Carvedilol 25 MG Tab PO SCH (21:08)
[2024-03-22] MEDS: DULoxetine 30 MG Cap PO SCH (21:10)
[2024-03-22] MEDS: atorvaSTATin 40 MG Tab PO SCH (21:10)
[2024-03-22] MEDS: Nicotine 21 MG/24 Hr Patch TRDERM PRN (21:21)
[2024-03-23 07:24] LABS: HEMATOCRIT 41.9 % (42.0-52.0); MEAN CORPUSCULAR HEMOGLOBIN 32.3 pg (28.0-32.0); MEAN CORPUSCULAR HGB CONC 33.4 g/dL (32.0-36.0); MEAN CORPUSCULAR VOLUME 96.8 fL (83.0-99.0); MEAN PLATELET VOLUME 11.8 fL (9.4-12.4); PLATELET COUNT,PLT 150 K/uL (150-400); RED BLOOD CELL COUNT 4.33 M/uL (4.52-5.90); WHITE BLOOD CELL COUNT,WBC 9.37 K/uL (3.9-11.3)
[2024-03-23 07:47] LABS: A/G RATIO 1.2 (0.9-1.6); ALBUMIN 3.6 g/dL (3.4-5.0); BILIRUBIN TOTAL 1.4 mg/dL (0.2-1.0); CALCIUM 8.7 mg/dL (8.5-10.1); CARBON DIOXIDE,CO2 28.1 mmol/L (21.0-32.0); EST CRCL DRUG DOSING (CG) 66.82 mL/min; MAGNESIUM 2.1 mg/dL (1.8-2.4); POTASSIUM,K 4.8 mmol/L (3.5-5.1); PROTEIN TOTAL,TP 6.6 g/dL (6.4-8.2)
[2024-03-23 08:51] LABS: HEMOGLOBIN A1C 5.8 %
[2024-03-23] MEDS ORDERED: atorvaSTATin 10 MG Tab PO SCH (09:00)
[2024-03-23] MEDS: Gabapentin 300 MG Cap PO ONE (09:25)
[2024-03-23] MEDS: Bisacodyl 5 MG Tab PO SCH (09:26)
[2024-03-23 12:13] VITALS: BP 186/92; PULSE 72
== END 2024-03-23 13:50 | disposition home or self-care (01) ==
LOC: MW.ED 08:42 → MW.MS 12:27
PROVIDERS: ADMIT Family Medicine; ATTEND Family Medicine
DX: M54.9 Dorsalgia, unspecified (principal); R53.1 Weakness; I10 Essential (primary) hypertension; I48.91 Unspecified atrial fibrillation; J44.9 Chronic obstructive pulmonary disease, unspecified; F17.200 Nicotine dependence, unspecified, uncomplicated; G62.9 Polyneuropathy, unspecified; I25.10 Atherosclerotic heart disease of native coronary artery without angina pectoris; Z79.01 Long term (current) use of anticoagulants; Z79.899 Other long term (current) drug therapy
CPT/HCPCS: 36415; 80048; 80053; 81001; 82550; 83036; 83735; 85025; 85027; 96361; 96374; 99285; A9270; G0378; J2060; J3490; J7030

== ENCOUNTER 2024-11-20 08:16 | Emergency (ER) | payer MEDICARE, BC ==
[2024-11-20] MEDS: Pantoprazole 80 MG in Sodium Chloride 0.9% 10 ML IVPUSH ONE (08:35)
[2024-11-20 08:45] LABS: BASOPHILS ABSOLUTE AUTO 0.06 K/uL (0.00-0.20); BASOPHILS PERCENT AUTO 0.6 % (0.0-1.0); EOSINOPHILS PERCENT AUTO 2.1 % (0.0-6.0); IMMATURE GRAN ABSOLUTE AUTO 0.02 K/uL (0.00-0.05); IMMATURE GRAN PERCENT AUTO 0.2 % (0.0-0.4); LYMPHOCYTES ABSOLUTE AUTO 1.92 K/uL (1.00-4.80); LYMPHOCYTES PERCENT AUTO 19.9 % (24.0-44.0); MEAN CORPUSCULAR HEMOGLOBIN 33.9 pg (28.0-32.0); MEAN CORPUSCULAR HGB CONC 33.3 g/dL (32.0-36.0); MEAN CORPUSCULAR VOLUME 101.6 fL (83.0-99.0); MEAN PLATELET VOLUME 11.1 fL (9.4-12.4); MONOCYTES ABSOLUTE AUTO 0.84 K/uL (0.00-0.80); MONOCYTES PERCENT AUTO 8.7 % (0.0-8.0); NEUTROPHILS PERCENT AUTO 68.5 % (41.0-71.0); PLATELET COUNT,PLT 195 K/uL (150-400); RED BLOOD CELL COUNT 4.43 M/uL (4.52-5.90); WHITE BLOOD CELL COUNT,WBC 9.64 K/uL (3.9-11.3)
[2024-11-20] MEDS: Labetalol 100 MG/20 ML MDV IVPUSH ONE (08:48)
[2024-11-20 09:00] LABS: INR 1.05 (0.86-1.11)
[2024-11-20 09:23] LABS: A/G RATIO 1.2 (0.9-1.6); ALBUMIN 3.7 g/dL (3.4-5.0); BILIRUBIN TOTAL 1.1 mg/dL (0.2-1.0); CALCIUM 9.2 mg/dL (8.5-10.1); CARBON DIOXIDE,CO2 29.1 mmol/L (21.0-32.0); EST CRCL DRUG DOSING (CG) 65.74 mL/min; POTASSIUM,K 4.4 mmol/L (3.5-5.1); PROTEIN TOTAL,TP 6.8 g/dL (6.4-8.2)
[2024-11-20] MEDS: Iopamidol 755 MG/ML 500 ML Multipack Bottle IVPUSH STA (10:48)
[2024-11-20] MEDS ORDERED: methylPREDNISolone Sodium Succinate 125 MG/2 ML SDV IVPUSH ONE (11:43)
[2024-11-20 11:51] VITALS: BP 158/86
[2024-11-20] MEDS: Acetaminophen 500 MG Tab PO ONE (11:53)
[2024-11-20] MEDS: Dexamethasone 4 MG Tab PO ONE (11:53)
[2024-11-20] MEDS: Lidocaine 2% Viscous Solution 15 ML UD PO ONE (11:54)
[2024-11-20 12:44] VITALS: PULSE 68
== END 2024-11-20 12:44 | disposition home or self-care (01) ==
LOC: MW.ED 08:16
DX: J02.9 Acute pharyngitis, unspecified (principal); M54.2 Cervicalgia; R04.2 Hemoptysis; I10 Essential (primary) hypertension; I25.2 Old myocardial infarction; E78.00 Pure hypercholesterolemia, unspecified; I25.10 Atherosclerotic heart disease of native coronary artery without angina pectoris; J44.89 Other specified chronic obstructive pulmonary disease; Z79.01 Long term (current) use of anticoagulants; Z79.899 Other long term (current) drug therapy
CPT/HCPCS: 36415; 70491; 71045; 71260; 80053; 83605; 83690; 83735; 83880; 85025; 85610; 87428; 87651; 96374; 96375; 99284; A9270; J1920; J2470; J8540; Q9967

== ENCOUNTER 2025-07-22 06:58 | Day surgery (SDC) | payer MEDICARE, BC ==
[2025-07-22] MEDS ORDERED: Ondansetron 4 MG/2 ML SDV ONE (07:02)
[2025-07-22] MEDS ORDERED: propofoL 500 MG/50 ML 50 ML ONE (07:02)
[2025-07-22] MEDS ORDERED: fentaNYL 100 MCG/2 ML SDV ONE (07:03)
[2025-07-22] MEDS: Lactated Ringers 1,000 ML IV SCH (07:20)
[2025-07-22] MEDS ORDERED: Ketamine HCL/NACL, ISO-OSM 50 MG/5 ML Syringe ONE (07:44)
[2025-07-22 12:53] VITALS: BP 130/78; PULSE 73
== END 2025-07-22 10:20 | disposition home or self-care (01) ==
LOC: MW.SDS 06:58
PROVIDERS: ATTEND Surgery
DX: D12.0 Benign neoplasm of cecum (principal); K31.7 Polyp of stomach and duodenum; K31.89 Other diseases of stomach and duodenum; K29.70 Gastritis, unspecified, without bleeding; K63.89 Other specified diseases of intestine; K57.30 Diverticulosis of large intestine without perforation or abscess without bleeding; I48.91 Unspecified atrial fibrillation; I25.10 Atherosclerotic heart disease of native coronary artery without angina pectoris; K64.8 Other hemorrhoids; Z88.8 Allergy status to other drugs, medicaments and biological substances; Z88.1 Allergy status to other antibiotic agents; Z88.0 Allergy status to penicillin; Z79.899 Other long term (current) drug therapy; Z86.0100 Personal history of colon polyps, unspecified
CPT/HCPCS: 43239; 45380; 88305; J2003; J2405; J2704; J3010; J7120; 00813; 99100; J3490

== ENCOUNTER 2025-07-26 19:29 | Inpatient (IN) | payer MEDICARE, BC ==
[2025-07-26 20:15] LABS: BASOPHILS ABSOLUTE AUTO 0.07 K/uL (0.00-0.20); BASOPHILS PERCENT AUTO 0.7 % (0.0-1.0); EOSINOPHILS ABSOLUTE AUTO 0.24 K/uL (0.00-0.45); EOSINOPHILS PERCENT AUTO 2.4 % (0.0-6.0); IMMATURE GRAN ABSOLUTE AUTO 0.02 K/uL (0.00-0.05); IMMATURE GRAN PERCENT AUTO 0.2 % (0.0-0.4); LYMPHOCYTES ABSOLUTE AUTO 2.92 K/uL (1.00-4.80); LYMPHOCYTES PERCENT AUTO 29.6 % (24.0-44.0); MEAN PLATELET VOLUME 11.0 fL (9.4-12.4); MONOCYTES ABSOLUTE AUTO 1.09 K/uL (0.00-0.80); MONOCYTES PERCENT AUTO 11.1 % (0.0-8.0); NEUTROPHILS ABSOLUTE AUTO 5.52 K/uL (1.80-7.70); NEUTROPHILS PERCENT AUTO 56.0 % (41.0-71.0); NRBC ABSOLUTE 0.00 K/uL (0.00-0.02); NRBC PERCENT 0.0 /100WBC (0.0-0.2); PLATELET COUNT,PLT 215 K/uL (150-400); RED BLOOD CELL COUNT 4.51 M/uL (4.52-5.90); WHITE BLOOD CELL COUNT,WBC 9.86 K/uL (3.9-11.3)
[2025-07-26 20:17] LABS: A/G RATIO 1.2 (0.9-1.6); ALANINE AMINOTRANSFERASE,ALT 27 IU/L (14-63); ASPARTATE AMNIOTRANSFERASE,AST 26 IU/L (15-37); BILIRUBIN TOTAL 0.6 mg/dL (0.2-1.0); BLOOD UREA NITROGEN,BUN 12 mg/dL (7.0-18.0); CARBON DIOXIDE,CO2 29.9 mmol/L (21.0-32.0); CHLORIDE,CL 105 mmol/L (98-107); CREATININE 1.1 mg/dL (0.8-1.3); ESTIMATED GFR 68 mL/min (>60); GLUCOSE RANDOM 131 mg/dL (74-106); POTASSIUM,K 4.8 mmol/L (3.5-5.1); PROTEIN TOTAL,TP 7.1 g/dL (6.4-8.2); SODIUM,NA 142 mmol/L (136-148)
[2025-07-26 20:23] LABS: INR 1.24 (0.86-1.11); PTT,PARTIAL THROMBOPLSTIN TIME 27.0 SEC (23.9-30.7)
[2025-07-26] MEDS: Water For Injection, Sterile 10 ML SDV INJECT ONE (22:40)
[2025-07-26] MEDS: Diphtheria,Pertussis(Acell),Tetanus Vaccine 0.5 ML Syringe IM ONE (22:40)
[2025-07-26] MEDS: Bacitracin Oint 1 GM U/D Packet TOP ONE (23:02)
[2025-07-27 05:58] LABS: BASOPHILS ABSOLUTE AUTO 0.05 K/uL (0.00-0.20); BASOPHILS PERCENT AUTO 0.4 % (0.0-1.0); EOSINOPHILS ABSOLUTE AUTO 0.19 K/uL (0.00-0.45); EOSINOPHILS PERCENT AUTO 1.6 % (0.0-6.0); IMMATURE GRAN ABSOLUTE AUTO 0.03 K/uL (0.00-0.05); IMMATURE GRAN PERCENT AUTO 0.3 % (0.0-0.4); LYMPHOCYTES ABSOLUTE AUTO 2.64 K/uL (1.00-4.80); LYMPHOCYTES PERCENT AUTO 22.6 % (24.0-44.0); MEAN PLATELET VOLUME 11.0 fL (9.4-12.4); MONOCYTES ABSOLUTE AUTO 1.37 K/uL (0.00-0.80); MONOCYTES PERCENT AUTO 11.7 % (0.0-8.0); NEUTROPHILS ABSOLUTE AUTO 7.38 K/uL (1.80-7.70); NEUTROPHILS PERCENT AUTO 63.4 % (41.0-71.0); NRBC ABSOLUTE 0.00 K/uL (0.00-0.02); NRBC PERCENT 0.0 /100WBC (0.0-0.2); PLATELET COUNT,PLT 184 K/uL (150-400); RED BLOOD CELL COUNT 4.41 M/uL (4.52-5.90); WHITE BLOOD CELL COUNT,WBC 11.66 K/uL (3.9-11.3)
[2025-07-27 06:27] LABS: BLOOD UREA NITROGEN,BUN 11.0 mg/dL (7.0-18.0); CARBON DIOXIDE,CO2 28.7 mmol/L (21.0-32.0); CHLORIDE,CL 108.0 mmol/L (98-107); CREATININE 1.0 mg/dL (0.8-1.3); EST CRCL DRUG DOSING (CG) 65.74 mL/min; GLUCOSE RANDOM 97.0 mg/dL (74-106); POTASSIUM,K 4.8 mmol/L (3.5-5.1); SODIUM,NA 142.0 mmol/L (136-148)
[2025-07-27 06:43] LABS: ESTIMATED GFR 77.0 mL/min (>60)
[2025-07-27] MEDS ORDERED: Benzocaine/Cetylpyridinium/Menthol Lozenge MUCMEM PRN (08:27)
[2025-07-27] MEDS ORDERED: Sodium Chloride 0.9% 2.5 ML Syringe FLUSH PRN (08:28)
[2025-07-27] MEDS ORDERED: Sodium Chloride 0.9% 10 ML Syringe FLUSH PRN (08:28)
[2025-07-27] MEDS ORDERED: Non-Formulary Medication 1 Each (Umeclidinium Bromide 62.5 MCG Blst.W.Dev) INH SCH (11:30)
[2025-07-27 12:50] LABS: BASOPHILS ABSOLUTE AUTO 0.05 K/uL (0.00-0.20); BASOPHILS PERCENT AUTO 0.4 % (0.0-1.0); EOSINOPHILS ABSOLUTE AUTO 0.20 K/uL (0.00-0.45); EOSINOPHILS PERCENT AUTO 1.6 % (0.0-6.0); IMMATURE GRAN ABSOLUTE AUTO 0.03 K/uL (0.00-0.05); IMMATURE GRAN PERCENT AUTO 0.2 % (0.0-0.4); LYMPHOCYTES ABSOLUTE AUTO 2.27 K/uL (1.00-4.80); LYMPHOCYTES PERCENT AUTO 18.1 % (24.0-44.0); MEAN PLATELET VOLUME 10.5 fL (9.4-12.4); MONOCYTES ABSOLUTE AUTO 1.15 K/uL (0.00-0.80); MONOCYTES PERCENT AUTO 9.2 % (0.0-8.0); NEUTROPHILS ABSOLUTE AUTO 8.81 K/uL (1.80-7.70); NEUTROPHILS PERCENT AUTO 70.5 % (41.0-71.0); NRBC ABSOLUTE 0.00 K/uL (0.00-0.02); NRBC PERCENT 0.0 /100WBC (0.0-0.2); PLATELET COUNT,PLT 199 K/uL (150-400); RED BLOOD CELL COUNT 4.39 M/uL (4.52-5.90); WHITE BLOOD CELL COUNT,WBC 12.51 K/uL (3.9-11.3)
[2025-07-27] MEDS: Amiodarone 360 MG/200 ML 360 MG/200 ML BAG IV ONE (12:56)
[2025-07-27 13:07] LABS: BLOOD UREA NITROGEN,BUN 12.0 mg/dL (7.0-18.0); CARBON DIOXIDE,CO2 27.3 mmol/L (21.0-32.0); CHLORIDE,CL 103.0 mmol/L (98-107); CREATININE 0.9 mg/dL (0.8-1.3); EST CRCL DRUG DOSING (CG) 73.05 mL/min; GLUCOSE RANDOM 133.0 mg/dL (74-106); POTASSIUM,K 4.6 mmol/L (3.5-5.1); SODIUM,NA 139.0 mmol/L (136-148)
[2025-07-27 13:09] LABS: ESTIMATED GFR 87.0 mL/min (>60)
[2025-07-27 13:13] VITALS: BP 166/105; PULSE 96
[2025-07-27 13:15] LABS: INR 1.29 (0.86-1.11); PTT,PARTIAL THROMBOPLSTIN TIME 28.3 SEC (23.9-30.7)
[2025-07-27] MEDS ORDERED: Warfarin Sliding Scale SCH (14:00)
[2025-07-27] MEDS: Tiotropium Bromide 4 GM Inhalation Spray (2.5mcg/1 dose; 10 doses) INH SCH (20:40)
== END 2025-07-27 13:10 | DRG 310 ==
LOC: MW.ED 19:29 → MW.MS 21:56 → MW.ICU 07-27 12:49
PROVIDERS: ADMIT Internal Medicine; ATTEND Internal Medicine
DX: S00.83XA Contusion of other part of head, initial encounter (principal); I47.10 Supraventricular tachycardia, unspecified; R00.0 Tachycardia, unspecified; W01.198A Fall on same level from slipping, tripping and stumbling with subsequent striking against other object, initial encounter; S00.81XA Abrasion of other part of head, initial encounter; I25.10 Atherosclerotic heart disease of native coronary artery without angina pectoris; J44.9 Chronic obstructive pulmonary disease, unspecified; E78.00 Pure hypercholesterolemia, unspecified; I48.91 Unspecified atrial fibrillation; I25.5 Ischemic cardiomyopathy; J43.1 Panlobular emphysema; I51.3 Intracardiac thrombosis, not elsewhere classified; I10 Essential (primary) hypertension; I48.19 Other persistent atrial fibrillation; E78.5 Hyperlipidemia, unspecified; H54.7 Unspecified visual loss; K21.9 Gastro-esophageal reflux disease without esophagitis; K29.70 Gastritis, unspecified, without bleeding; I08.0 Rheumatic disorders of both mitral and aortic valves; M19.90 Unspecified osteoarthritis, unspecified site; G89.29 Other chronic pain; G62.9 Polyneuropathy, unspecified; Z98.890 Other specified postprocedural states; Z79.82 Long term (current) use of aspirin; Z79.899 Other long term (current) drug therapy; I25.2 Old myocardial infarction; Z88.8 Allergy status to other drugs, medicaments and biological substances; Z79.01 Long term (current) use of anticoagulants; W19.XXXA Unspecified fall, initial encounter; Y92.89 Other specified places as the place of occurrence of the external cause
CPT/HCPCS: 36415; 70450; 70450-26; 70486; 70486-26; 71250; 71250-26; 72125; 72125-26; 73130-26-RT; 73130-RT; 74176; 74176-26; 80048; 80053; 83735; 84484; 85025; 85610; 85730; 90715; 93005; 93010; 97161-GP; 99222; 99285; A9270-GY; J0283; J0690; J7030

== ENCOUNTER 2025-08-02 18:20 | Emergency (ER) | payer MEDICARE, BC ==
[2025-08-02 18:52] LABS: MEAN PLATELET VOLUME 10.6 fL (9.4-12.4); NRBC ABSOLUTE 0.00 K/uL (0.00-0.02); NRBC PERCENT 0.0 /100WBC (0.0-0.2); PLATELET COUNT,PLT 179 K/uL (150-400); RED BLOOD CELL COUNT 4.41 M/uL (4.52-5.90); WHITE BLOOD CELL COUNT,WBC 11.26 K/uL (3.9-11.3)
[2025-08-02 19:24] LABS: A/G RATIO 1.1 (0.9-1.6); ALANINE AMINOTRANSFERASE,ALT 17.0 IU/L (14-63); ASPARTATE AMNIOTRANSFERASE,AST 18.0 IU/L (15-37); BILIRUBIN TOTAL 0.9 mg/dL (0.2-1.0); BLOOD UREA NITROGEN,BUN 16.0 mg/dL (7.0-18.0); CARBON DIOXIDE,CO2 25.3 mmol/L (21.0-32.0); CHLORIDE,CL 106.0 mmol/L (98-107); CREATININE 1.0 mg/dL (0.8-1.3); EST CRCL DRUG DOSING (CG) 65.74 mL/min; GLUCOSE RANDOM 106.0 mg/dL (74-106); POTASSIUM,K 4.5 mmol/L (3.5-5.1); PROTEIN TOTAL,TP 7.0 g/dL (6.4-8.2); SODIUM,NA 140.0 mmol/L (136-148)
[2025-08-02 19:25] LABS: ESTIMATED GFR 77.0 mL/min (>60)
[2025-08-02 19:44] LABS: BAND ABSOLUTE MAN 0.23; BAND PERCENT MAN 2 %; LYMPHOCYTES ABSOLUTE MAN 1.69 K/uL (1.00-4.80); LYMPHOCYTES PERCENT MAN 15 % (24-44); SEG NEUTROPHILS ABSOLUTE MAN 7.43 K/uL (1.80-7.70); SEG NEUTROPHILS PERCENT MAN 66 % (41-71)
[2025-08-02 19:45] LABS: BASOPHILS ABSOLUTE MAN 0.11 K/uL (0.00-0.20); BASOPHILS PERCENT MAN 1 % (0-1); MONOCYTES ABSOLUTE MAN 1.80 K/uL (0.00-0.80); MONOCYTES PERCENT MAN 16 % (0-8)
[2025-08-02 20:34] VITALS: BP 139/69; PULSE 63
== END 2025-08-02 20:44 | disposition home or self-care (01) ==
LOC: MW.ED 18:20
DX: I82.612 Acute embolism and thrombosis of superficial veins of left upper extremity (principal); I80.9 Phlebitis and thrombophlebitis of unspecified site; I48.91 Unspecified atrial fibrillation; I25.10 Atherosclerotic heart disease of native coronary artery without angina pectoris; I25.2 Old myocardial infarction; I10 Essential (primary) hypertension; E78.00 Pure hypercholesterolemia, unspecified; J44.9 Chronic obstructive pulmonary disease, unspecified; K21.9 Gastro-esophageal reflux disease without esophagitis; F17.200 Nicotine dependence, unspecified, uncomplicated; Z88.8 Allergy status to other drugs, medicaments and biological substances; Z79.01 Long term (current) use of anticoagulants; Z79.82 Long term (current) use of aspirin; Z79.899 Other long term (current) drug therapy; Z75.3 Unavailability and inaccessibility of health-care facilities
CPT/HCPCS: 36415; 80053; 85025; 93971; 99283; A9270; 99284

== ENCOUNTER 2025-08-04 17:18 | Emergency (ER) | payer MEDICARE, BC ==
[2025-08-04] MEDS ORDERED: Sodium Chloride 0.9% 10 ML Syringe FLUSH PRN (18:22)
[2025-08-04] MEDS ORDERED: Sodium Chloride 0.9% 2.5 ML Syringe FLUSH PRN (18:22)
[2025-08-04 18:48] LABS: BASOPHILS ABSOLUTE AUTO 0.06 K/uL (0.00-0.20); BASOPHILS PERCENT AUTO 0.6 % (0.0-1.0); EOSINOPHILS ABSOLUTE AUTO 0.19 K/uL (0.00-0.45); EOSINOPHILS PERCENT AUTO 1.7 % (0.0-6.0); IMMATURE GRAN ABSOLUTE AUTO 0.02 K/uL (0.00-0.05); IMMATURE GRAN PERCENT AUTO 0.2 % (0.0-0.4); LYMPHOCYTES ABSOLUTE AUTO 2.08 K/uL (1.00-4.80); LYMPHOCYTES PERCENT AUTO 19.1 % (24.0-44.0); MEAN PLATELET VOLUME 11.0 fL (9.4-12.4); MONOCYTES ABSOLUTE AUTO 1.21 K/uL (0.00-0.80); MONOCYTES PERCENT AUTO 11.1 % (0.0-8.0); NEUTROPHILS ABSOLUTE AUTO 7.34 K/uL (1.80-7.70); NEUTROPHILS PERCENT AUTO 67.3 % (41.0-71.0); NRBC ABSOLUTE 0.00 K/uL (0.00-0.02); NRBC PERCENT 0.0 /100WBC (0.0-0.2); PLATELET COUNT,PLT 205 K/uL (150-400); RED BLOOD CELL COUNT 4.52 M/uL (4.52-5.90); WHITE BLOOD CELL COUNT,WBC 10.90 K/uL (3.9-11.3)
[2025-08-04 19:03] LABS: INR 1.6 (0.86-1.11)
[2025-08-04 19:23] LABS: A/G RATIO 1.0 (0.9-1.6); ALANINE AMINOTRANSFERASE,ALT 20.0 IU/L (14-63); ASPARTATE AMNIOTRANSFERASE,AST 20.0 IU/L (15-37); BILIRUBIN TOTAL 0.8 mg/dL (0.2-1.0); BLOOD UREA NITROGEN,BUN 19.0 mg/dL (7.0-18.0); CARBON DIOXIDE,CO2 24.3 mmol/L (21.0-32.0); CHLORIDE,CL 105.0 mmol/L (98-107); CREATININE 1.1 mg/dL (0.8-1.3); EST CRCL DRUG DOSING (CG) 59.77 mL/min; GLUCOSE RANDOM 103.0 mg/dL (74-106); POTASSIUM,K 4.6 mmol/L (3.5-5.1); PROTEIN TOTAL,TP 6.9 g/dL (6.4-8.2); SODIUM,NA 138.0 mmol/L (136-148)
[2025-08-04 19:24] LABS: ESTIMATED GFR 68.0 mL/min (>60)
[2025-08-04 20:35] VITALS: BP 130/78; PULSE 73
== END 2025-08-04 20:34 | disposition home or self-care (01) ==
LOC: MW.ED 17:18
DX: R55 Syncope and collapse (principal); I10 Essential (primary) hypertension; I25.10 Atherosclerotic heart disease of native coronary artery without angina pectoris; I25.2 Old myocardial infarction; I48.91 Unspecified atrial fibrillation; E78.00 Pure hypercholesterolemia, unspecified; J44.9 Chronic obstructive pulmonary disease, unspecified; K21.9 Gastro-esophageal reflux disease without esophagitis; M19.90 Unspecified osteoarthritis, unspecified site; Z79.899 Other long term (current) drug therapy; Z79.01 Long term (current) use of anticoagulants; Z88.8 Allergy status to other drugs, medicaments and biological substances
CPT/HCPCS: 36415; 71045; 71045-26; 80053; 83735; 84484; 85025; 85610; 99284

== ENCOUNTER 2025-08-07 09:48 | Emergency (ER) | payer MEDICARE, BC ==
[2025-08-07] MEDS ORDERED: Sodium Chloride 0.9% 10 ML Syringe FLUSH PRN (09:56)
[2025-08-07] MEDS ORDERED: Sodium Chloride 0.9% 2.5 ML Syringe FLUSH PRN (09:56)
[2025-08-07 10:11] LABS: BASOPHILS ABSOLUTE AUTO 0.08 K/uL (0.00-0.20); BASOPHILS PERCENT AUTO 0.8 % (0.0-1.0); EOSINOPHILS ABSOLUTE AUTO 0.20 K/uL (0.00-0.45); EOSINOPHILS PERCENT AUTO 1.9 % (0.0-6.0); IMMATURE GRAN ABSOLUTE AUTO 0.03 K/uL (0.00-0.05); IMMATURE GRAN PERCENT AUTO 0.3 % (0.0-0.4); LYMPHOCYTES ABSOLUTE AUTO 1.77 K/uL (1.00-4.80); LYMPHOCYTES PERCENT AUTO 16.6 % (24.0-44.0); MEAN PLATELET VOLUME 10.6 fL (9.4-12.4); MONOCYTES ABSOLUTE AUTO 1.12 K/uL (0.00-0.80); MONOCYTES PERCENT AUTO 10.5 % (0.0-8.0); NEUTROPHILS ABSOLUTE AUTO 7.44 K/uL (1.80-7.70); NEUTROPHILS PERCENT AUTO 69.9 % (41.0-71.0); NRBC ABSOLUTE 0.00 K/uL (0.00-0.02); NRBC PERCENT 0.0 /100WBC (0.0-0.2); PLATELET COUNT,PLT 222 K/uL (150-400); RED BLOOD CELL COUNT 4.55 M/uL (4.52-5.90); WHITE BLOOD CELL COUNT,WBC 10.64 K/uL (3.9-11.3)
[2025-08-07 10:23] LABS: INR 1.61 (0.86-1.11); PTT,PARTIAL THROMBOPLSTIN TIME 31.0 SEC (23.9-30.7)
[2025-08-07 10:40] LABS: A/G RATIO 1.1 (0.9-1.6); ALANINE AMINOTRANSFERASE,ALT 21.0 IU/L (14-63); ASPARTATE AMNIOTRANSFERASE,AST 18.0 IU/L (15-37); BILIRUBIN TOTAL 1.0 mg/dL (0.2-1.0); BLOOD UREA NITROGEN,BUN 16.0 mg/dL (7.0-18.0); CARBON DIOXIDE,CO2 23.2 mmol/L (21.0-32.0); CHLORIDE,CL 106.0 mmol/L (98-107); CREATINE KINASE,CK 62.0 U/L (26-308); CREATININE 1.1 mg/dL (0.8-1.3); EST CRCL DRUG DOSING (CG) 59.77 mL/min; ESTIMATED GFR 68.0 mL/min (>60); GLUCOSE RANDOM 107.0 mg/dL (74-106); POTASSIUM,K 4.4 mmol/L (3.5-5.1); PRO B-TYPE NATRIUR PEPT,BNPPRO 1073.0 pg/mL (0-450); PROTEIN TOTAL,TP 7.3 g/dL (6.4-8.2); SODIUM,NA 140.0 mmol/L (136-148)
[2025-08-07 14:22] VITALS: BP 154/91; PULSE 62
== END 2025-08-07 15:05 ==
LOC: MW.ED 09:48
DX: T82.897A Other specified complication of cardiac prosthetic devices, implants and grafts, initial encounter (principal); I48.91 Unspecified atrial fibrillation; I25.10 Atherosclerotic heart disease of native coronary artery without angina pectoris; E78.00 Pure hypercholesterolemia, unspecified; J44.9 Chronic obstructive pulmonary disease, unspecified; K21.9 Gastro-esophageal reflux disease without esophagitis; F17.200 Nicotine dependence, unspecified, uncomplicated; Z88.8 Allergy status to other drugs, medicaments and biological substances; Z79.01 Long term (current) use of anticoagulants; Z79.82 Long term (current) use of aspirin; Z79.899 Other long term (current) drug therapy
CPT/HCPCS: 36415; 71045; 80053; 82550; 83735; 83880; 84484; 85025; 85610; 85730; 93005; 99285; A9270